=== PATIENT | male | born 1955 | race Caucasian/White ===

== ENCOUNTER 2020-01-12 16:14 | Outpatient (CLI) | payer BC, SELFPAY ==
--- NOTE | ~2020-01-12 | XR_ITS ---
EXAMINATION: XR knee RT min 4V DATE: 01/12/2020 16:36 INDICATION: Right knee pain TECHNIQUE: Four views of the right knee were obtained. COMPARISON: None. FINDINGS: Alignment is normal. No fracture or osteochondral lesion. There is mild tricompartmental os teoarthritis characterized by tiny marginal osteophytes. No joint effusion/synovitis. Soft tissues a re unremarkable. IMPRESSION: 1. No acute osseous abnormality. Reviewed, dictated and finalized at location A.
== END 2020-01-12 16:15 | disposition home or self-care (01) ==
LOC: CHSIMG 16:16
PROVIDERS: PCP Internal Medicine; Visit Provider Internal Medicine
DX: M25.561 Pain in right knee (principal)
CPT/HCPCS: 73564

== ENCOUNTER 2020-12-28 14:04 | Outpatient (CLI) | payer MEDICARE, SELFPAY ==
--- NOTE | ~2020-12-28 | CT_ITS ---
EXAMINATION: CT abdomen pelvis wo con DATE: 12/28/2020 14:29 INDICATION: Left flank pain with microhematuria TECHNIQUE: Computed tomography (CT) of the abdomen and pelvis was performed without intravenous contr ast. The dose-length product was 363.70 mGy-cm. Automated exposure control and iterative reconstructi on technique were employed. COMPARISON: CT dated 07/24/2014. FINDINGS: There is lingular and right middle lobe atelectasis. Heart size is normal. No significant p leural or pericardial effusion. The liver, spleen, adrenal glands and left kidney are unremarkable. There are nonobstructing right re nal stones. No significant hydronephrosis. No ureteral stones. Bladder is unremarkable. Prostate glan d mildly prominent. Nonobstructive bowel gas pattern. There is a retroaortic left renal vein. There i s fatty infiltration of the pancreas. There is surgical anastomosis in the distal colon. No significant vascular abnormality. No lymphadenopathy. No abnormal pelvic masses or fluid collectio ns. Moderate lumbar spondylosis. There is a prosthetic disc device at L4-5. No acute osseous abnormal ity. IMPRESSION: 1. Nonobstructing right nephrolithiasis. Reviewed, dictated and finalized at location B.
== END 2020-12-28 14:05 | disposition home or self-care (01) ==
LOC: CHSIMG 14:08
PROVIDERS: PCP Internal Medicine; Visit Provider Internal Medicine
DX: R10.9 Unspecified abdominal pain (principal)
CPT/HCPCS: 74176

== ENCOUNTER 2021-02-15 08:41 | Outpatient (CLI) | payer MEDICARE, SELFPAY ==
--- NOTE | ~2021-02-15 | US_ITS ---
EXAMINATION: US carotid duplex BI DATE: 02/15/2021 09:17 INDICATION: Vertigo. Carotid stenosis. TECHNIQUE: Grayscale, color Doppler, and pulsed Doppler images of the cervical carotid arteries were obtained. The degree of vessel stenosis is placed in one of the following categories: normal, <50%, 5 0-69%, >=70% but less than near-occlusion, near-occlusion, or total occlusion. Note that percent sten osis relative to normal distal artery lumen diameter is indirectly measured from velocity measurement s as described by Jigar, et al. Radiology 2003; [id number]:[id number]. Notes: Normal: Peak systolic velocity <125 centimeters/sec and no plaque <50%. Peak systolic velocity <125 ( EDV <40; ICA/CCA PSV ratio <2.0; used these factors only a tandem lesions or low cardiac output or co ntralateral disease) 50-69 %: PSV 125-230 (EDV 40-100; ratio 2-4) >= 70% but less than near occlusion: PSV greater than 230 (EDV > 100; ratio> 4.0) Near Occlusion: PSV that is variable; markedly narrowed lumen Occlusion: Absent flow on color/spectral Doppler and no lumen on paredes scale. COMPARISON: None. FINDINGS: RIGHT: The right common carotid artery (CCA) peak systolic velocity (PSV) is 87 cm/s. The right internal car otid artery (ICA) PSV is 120 cm/s. The right ICA end-diastolic velocity (EDV) is 29 cm/s. The right I CA/CCA PSV ratio is 1.4. The external carotid artery (ECA) PSV is 91 cm/s. There is antegrade flow in the right vertebral artery. LEFT: The left CCA PSV is 94 cm/s. The left ICA PSV is 89 cm/s. The left ICA EDV is 26 cm/s. The left ICA/C CA PSV ratio is 0.9. The ECA PSV is 108 cm/s. There is antegrade flow in the left vertebral artery. IMPRESSION: 1. Less than 50% stenosis in the right internal carotid artery by sonographic criteria. 2. Less than 50% stenosis in the left internal carotid artery by sonographic criteria. Reviewed, dictated and finalized at location A. IMPRESSION: 1. Less than 50% stenosis in the right internal carotid artery by sonographic c anthony. 2. Less than 50% stenosis in the left internal carotid artery by sonographic cr thang.
== END 2021-02-15 08:42 | disposition home or self-care (01) ==
LOC: CHSIMG 08:44
PROVIDERS: PCP Internal Medicine; Visit Provider Internal Medicine
DX: I65.29 Occlusion and stenosis of unspecified carotid artery (principal)
CPT/HCPCS: 93880

== ENCOUNTER 2021-05-18 08:15 | Outpatient (CLI) | payer MEDICARE, SELFPAY ==
--- NOTE | ~2021-05-18 | CT_ITS ---
EXAMINATION: CT abdomen pelvis wo/w con DATE: 05/18/2021 09:20 INDICATION: Microhematuria. TECHNIQUE: Computed tomography (CT) of the abdomen and pelvis was performed without and with intraven ous contrast using a total of 130 mL Omnipaque-350 intravenous contrast with a double-bolus technique for simultaneous opacification of the renal parenchyma and renal collecting system. Automated exposu re control and iterative reconstruction technique were employed. The dose-length product was 1785.25 mGy-cm. COMPARISON: CT abdomen and pelvis 12/28/2020 FINDINGS: The visualized portions of the lung bases demonstrate mild atelectasis. No pleural effusion. The hear t size is normal. There are coronary artery calcifications. No pericardial effusion. The liver and sp lucius are normal. There are changes of cholecystectomy. The pancreas and left adrenal gland are normal . 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 There are approx imately 5 stones in right kidney measuring up to 4 mm. There are cysts in the kidneys measuring up to 10 mm on the right. The ureters are well opacified and are normal. The bladder is normal. The prosta te is mildly enlarged. There is an anastomosis in the rectosigmoid. There is diverticulosis of the co diana without evidence of diverticulitis. There are no dilated loops of bowel. The appendix is not visu alized. There is a small right inguinal hernia containing fat. There are no pathologically enlarged l ymph nodes. There is no free intraperitoneal fluid. There is moderate lumbar spondylosis. There are c hanges of anterior fusion procedure at L5-S1. IMPRESSION: 1. Nonobstructing right kidney stones measuring up to 4 mm. Reviewed, dictated and finalized at location A.
--- NOTE | ~2021-05-18 | XR_ITS ---
EXAMINATION: XR abdomen/kub 1V DATE: 05/18/2021 08:35 INDICATION: Microhematuria. TECHNIQUE: A supine view of the abdomen on 2 radiographs was obtained. COMPARISON: CT abdomen and pelvis 05/18/2021 FINDINGS: There are no dilated loops of bowel. There is a phlebolith in left pelvis. There is a 4 mm stone in right kidney lower pole. Surgical clips in the right upper quadrant are likely from cholecys tectomy. There are changes of anterior fusion procedure at L5-S1. IMPRESSION: 1. 4 mm right kidney stone. Reviewed, dictated and finalized at location A. IMPRESSION: 1. 4 mm right kidney stone.
[2021-05-18 09:02] LABS: Estimated Glomerular Filt Rate > 60
== END 2021-05-18 08:16 | disposition home or self-care (01) ==
LOC: ANHIMG 08:21
PROVIDERS: PCP Internal Medicine; Visit Provider Nurse Practitioner Adult Health
DX: R31.29 Other microscopic hematuria (principal); N20.0 Calculus of kidney
CPT/HCPCS: 74018; 74178; Q9967

== ENCOUNTER 2021-06-02 10:24 | Outpatient (CLI) | payer MEDICARE, SELFPAY ==
--- NOTE | ~2021-06-02 | XR_ITS ---
XR foot LT min 3V 06/02/2021 10:48 Indication: Left fourth and fifth metatarsal pain Procedure: 4 views left foot Comparison: No prior studies for comparison. Findings: No fracture, subluxation or dislocation. Lisfranc joint intact. No significant soft tissue abnormality. No foreign bodies. Impression: 1: No significant bone or joint abnormality. Reviewed, dictated and finalized at location A. 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
== END 2021-06-02 10:25 | disposition home or self-care (01) ==
LOC: CHSIMG 10:27
PROVIDERS: PCP Internal Medicine; Visit Provider Internal Medicine
DX: S99.922A Unspecified injury of left foot, initial encounter (principal)
CPT/HCPCS: 73630

== ENCOUNTER → 2021-11-16 10:07 | Outpatient (CLI) | payer MEDICARE, SELFPAY ==
--- NOTE | ~2021-11-16 | MR_ITS ---
EXAMINATION: MR lumbar spine wo con DATE: 11/16/2021 10:39 INDICATION: Lumbar spondylosis with radiculopathy. Low back pain. Bilateral leg pain. TECHNIQUE: Magnetic resonance imaging (MRI) of the lumbar spine was performed without intravenous con trast. Sequences included sagittal T2-weighted FSE, sagittal T2-weighted FS FSE, sagittal T1-weighted FSE, and axial T2-weighted FSE. COMPARISON: None FINDINGS: There is 3 degrees levocurvature of lumbar spine. There is 3 mm anterolisthesis of L4 on L5 . There are changes of anterior fusion procedure at L5-S1 with interbody device. There are Schmorl's nodes at multiple levels. There is mildly decreased disc height at L1-L2 and L2-L3, moderately decrea sed disc height at L3-L4, and mildly decreased disc height at L4-L5. The distal spinal cord signal in tensity is normal. The conus medullaris is at L1. The following disc levels are specifically discusse d: L1-L2: The disc is bulging and has an annular fissure. There is mild bilateral facet joint osteoarthr itis. There is mild bilateral neural foraminal stenosis. There is mild central canal stenosis. L2-L3: The disc is bulging and has an annular fissure. There is mild bilateral facet joint osteoarthr itis. There is mild bilateral neural foraminal stenosis. There is mild central canal stenosis. L3-L4: The disc is bulging and has an annular fissure. There is severe bilateral facet joint osteoart hritis. There is moderate bilateral neural foraminal stenosis. There is mild central canal stenosis. L4-L5: The disc is bulging and has an annular fissure. There is severe bilateral facet joint osteoart hritis. There is mild right and moderate left neural foraminal stenosis. There is mild central canal stenosis. L5-S1: There is moderate bilateral facet joint osteoarthritis. There is mild bilateral neural foramin al stenosis. There is no central canal stenosis. IMPRESSION: 1. Moderate lumbar spondylosis. 2. Anterior fusion procedure at L5-S1. Reviewed, dictated and finalized at location A.
== END ==
PROVIDERS: PCP Internal Medicine
DX: M47.26 Other spondylosis with radiculopathy, lumbar region (principal); Z98.1 Arthrodesis status
CPT/HCPCS: 72148

== ENCOUNTER 2022-06-02 07:57 | Outpatient (RCR) | payer MEDICARE, SELFPAY ==
--- NOTE | 2022-06-02 09:14 | PTOPEVAL1 ---
Assessment and note entered by Bess Mensah DPT Evaluation Information Assessment Status Evaluation Diagnosis LBP Onset 09/20/2021 Subjective Information Pt reports that back pain started in September when he lifted a heavy generator to his truck. Pt reports that as soon as he lifted the weight, he felt immediate pain. He has had a lumbar fusion from L5 -S1 several years ago. He figured his pain would go away but it hasn't. He reports that for awhile, pain got better, but it is not completely resolved. He notices that when he is walking, his foot seem to slap on the ground. 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 He notes that he is more sensitive to the seats in a truck or the smoothness of the road when driving. He reports pain in the low back that feels like burning. Pt reports that sleep is mostly unaffected since he has started taking pregabalin. Denies numbness or tingling. He has a follow up with his MD on 06/29. Pt wants to be able to have less pain and feel more like himself. Reported Pain Level Pain Score 3: Self Report Assessment PT Clinical Summary Pt presents to physical therapy with low back pain and demonstrates decreased strength, decreased muscular mobility, and altered gait/posture. His current deficits make it more challenging for him to lift weights, walk, and maintain sitting positions for extended periods of time as needed for driving his truck or hunting. He was provided with an HEP focused on improve mobility and strength within his tolerance. He will benefit from skilled PT to improve the aforementioned impairments, facilitate symptom relief, and return to functional and recreational activities. Plan of Care Interventions Electrical Stimulation,Gait Training,Hot Pack/Cold Pack,Manual Therapy,Neuro Re-education,Patient/ Caregiver Educati,Therapeutic Activities, Therapeutic Exercise PT Services Indicated Yes These treatments will address the objective and functional deficits as defined above. The patient will be advanced safely and appropriately in order for the patient to progress towards his/her prior level of function. Additional exercises will be introduced and as well as a comprehensive home exercise program upon discharge, if needed, ?to ensure carryover of functional gains achieved in the clinic. This treatment plan has been reviewed and agreement upon by the patient.
== END 2022-06-12 09:41 | disposition home or self-care (01) ==
LOC: CHSPT 07:57
PROVIDERS: PCP Nurse Practitioner Family; Visit Provider Nurse Practitioner Family
DX: M47.26 Other spondylosis with radiculopathy, lumbar region (principal)
CPT/HCPCS: 97014; 97110; 97161; G0283

== ENCOUNTER 2022-08-07 16:52 | Emergency (ER) | payer MEDICARE, SELFPAY ==
--- NOTE | ~2022-08-07 | CT_ITS ---
EXAMINATION: CT brain wo con DATE: 08/07/2022 17:41 INDICATION: headache; fall, small bump on back of head . TECHNIQUE: Computed tomography (CT) of the head was performed without intravenous contrast. The mA wa s adjusted according to patient size. Iterative reconstruction technique was employed. The dose-lengt h product was 605.33 mGy-cm. COMPARISON: None. FINDINGS: No acute intracranial hemorrhage or extra-axial fluid collection. No hydrocephalus, mass, or herniation. No acute ischemic infarct. Unremarkable dural venous sinus attenuation. No acute osseous abnormality. Small posterior scalp contusion. The aerated spaces are clear. Prior bilateral mastoidectomies. Minimal fluid present in some residua l mastoid air cells. IMPRESSION: No acute intracranial process. Reviewed, dictated and finalized at location K. 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
--- NOTE | ~2022-08-07 | CT_ITS ---
EXAMINATION: CT cervical spine wo con DATE: 08/07/2022 17:41 INDICATION: chronic neck pain, s/p C6-7 fusion, neck pain now TECHNIQUE: Computed tomography (CT) of the cervical spine was performed without intravenous contrast. Automated exposure control and iterative reconstruction technique were employed. The dose-length pro duct was 371.34 mGy-cm. COMPARISON: None. FINDINGS: Vertebral Body Alignment: Intact. Reversed lordosis centered at C4-5. Craniocervical and atlantoaxial alignment: Moderate degenerative change. Alignment intact. Osseous structures/fracture: No evidence of a lytic or blastic process in the visualized spine. No e vidence of acute fracture. Uncomplicated appearing anterior fusion at C6-7. Cervical soft tissues: The paraspinal soft tissues planes are maintained. Degenerative changes: Degenerative changes, without severe neural foraminal or central canal narrowin g. Moderate left neural foraminal narrowing at C5-6 and C6-7. IMPRESSION: No acute fracture or traumatic malalignment in the cervical spine Reviewed, dictated and finalized at location K. 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
[2022-08-07 16:54] VITALS: BP 179/98; PULSE 76; RESP 16; TEMP 36.7; O2SAT 99
[2022-08-07 17:07] VITALS: BP 178/98; PULSE 77; RESP 16; TEMP 36.3; O2SAT 100
--- NOTE | 2022-08-07 17:26 | ED.GENADULT ---
HPI - General Adult General Chief complaint: Head Injury Stated complaint: hit head on ground History of Present Illness HPI narrative: the patient is a 67-year-old male who was outside, his left leg got trapped in his bumper of his truck, so he fell backwards, hitting his head on concrete, with a brief loss of consciousness, scalp hematoma, dizziness, and nausea but no vomiting. He also has a headache mostly in the posterior head. Event took place at 3:20 p.m.. He went home. He took half of a tablet of hydrocodone 10 mg 325 that he had at home to relieve the pain. Does have tingling in both feet. No motor or sensory deficits otherwise. No neck pain that is increased compared to baseline. Lights do bother him with photophobia. No vomiting. No blurred vision. Did try to get up suddenly from the couch and had dizziness and vertigo but this has improved. He did drive himself here. Prior history of C6-7 fusion. Related Data Home Medications Medication Instructions Recorded Confirmed glimepiride 4 mg tablet 4 mg PO QAM 06/01/20 08/07/22 metformin 1,000 mg tablet 1,000 mg PO BID 06/01/20 08/07/22 pantoprazole 40 mg tablet,delayed 40 mg PO QAM 06/01/20 08/07/22 release hydrocodone 10 mg-acetaminophen 1 tablet PO Q8H PRN Pain 06/24/20 08/07/22 325 mg tablet tamsulosin 0.4 mg capsule 0.4 mg PO DAILY 06/24/20 08/07/22 losartan 100 mg tablet 100 mg PO DAILY 07/04/21 08/07/22 Allergies Allergy/AdvReac Type Severity Reaction Status Date / Time No Known Allergies Allergy Unknown Verified 07/04/21 10:49 Review of Systems Review of Systems: All systems reviewed & are unremarkable except as noted in HPI and below Constitutional: Constitutional: Reports no additional constitutional complaints, Denies anorexia, Denies body ache(s), Denies chills, Denies excessive sweating, Denies fatigue, Denies fever(s), Denies frequent falls, Reports headache(s), Denies malaise and Denies poor appetite Eyes: Eyes: Reports no additional eye complaints, Denies blurry vision, Denies change in vision, Denies irritation, Denies itchy eyes and Reports photophobia ENT: Reports system reviewed and no additional complaints, except as documented, Reports Normal hearing present, Denies change in voice, Denies dysphagia, Reports vertigo, Reports dizziness, Denies ear discharge, Reports headache(s), Denies hearing loss, Denies hoarseness, Denies nasal congestion, Reports neck pain, Denies sinus pressure, Denies sore throat and Denies throat swelling Cardiovascular: Cardiovascular: Reports no additional cardiovascular complaints, Denies chest pain, Denies syncope, Denies rapid heart rate, Denies irregular heart rhythm, Denies leg edema, Denies dyspnea and Denies slow heart rate Respiratory: Respiratory: Reports no additional respiratory complaints, Denies cough, Denies dyspnea, Denies stridor and Denies wheezing Gastrointestinal: Gastrointestinal: Reports no additional gastrointestinal complaints, Denies abdominal pain, Denies melena, Denies hematochezia, Denies dysphagia, Denies diarrhea, Denies nausea and Denies vomiting Genitourinary: Genitourinary: Denies hematuria, Denies oliguria, Denies dysuria, Denies flank pain, Denies urinary frequency and Denies urinary urgency Musculoskeletal: Musculoskeletal: Reports no additional musculoskeletal complaints, Denies abnormal gait, Denies back pain, Denies myalgias, Denies arthralgias, Denies joint swelling, Denies limited range of motion, Denies muscle cramps, Denies muscle weakness, Reports neck pain and Denies numbness Integumentary/Breasts: Skin/Breast: Reports system reviewed and no additional complaints, except as docu, Denies breast pain, Denies change in pigmentation, Denies pruritus, Denies erythema and Denies wounds Neurologic: Reports system reviewed and no additional complaints, except as documented, Reports Normal hearing present, Denies Abnormal speech present, Denies abnormal gait, Denies confusion, Reports
[2022-08-07] MEDS: ONDANSETRON HCL ODT 4 MG TABLET 8 MG PO (19:00)
[2022-08-07] MEDS: MECLIZINE HCL 25 MG TABLET 50 MG PO (19:00)
[2022-08-07 19:04] VITALS: BP 159/77; PULSE 79; RESP 16; TEMP 37; O2SAT 96
== END 2022-08-07 19:06 | disposition home or self-care (01) ==
PROVIDERS: Emergency Provider Emergency Medicine; PCP Internal Medicine
DX: S06.0X1A Concussion with loss of consciousness of 30 minutes or less, initial encounter (principal); Z79.891 Long term (current) use of opiate analgesic; Z79.84 Long term (current) use of oral hypoglycemic drugs; Z87.891 Personal history of nicotine dependence; W18.39XA Other fall on same level, initial encounter
CPT/HCPCS: 70450; 72125; 99284; A9270; L0150

== ENCOUNTER 2022-10-23 15:56 | Outpatient (CLI) | payer MEDICARE, SELFPAY ==
--- NOTE | ~2022-10-23 | XR_ITS ---
EXAM: XR shoulder RT min 2V DATE: 10/23/2022 16:09 HISTORY: R SHOULDER PAIN,CHRONIC . COMPARISON: None available. FINDINGS: Normal mineralization. No fracture or dislocation. No lytic or blastic lesion. Widened AC joint. Moderate narrowing, subchondral sclerosis, and subchondral cyst formation at the glenohumeral joint. Amorphous calcification in the distal rotator cuff. No erosion or periosteal change. Soft tiss ues within normal limits. IMPRESSION: AC joint widening, may be secondary to remote injury, surgical change, or osteolysis. Mod erate glenohumeral joint osteoarthritis. Rotator cuff calcific tendinitis. Reviewed, dictated and finalized at location K. IMPRESSION: AC joint widening, may be secondary to remote injury, surgical akers ge, or osteolysis. Moderate glenohumeral joint osteoarthritis. Rotator cuff julee cific tendinitis.
== END 2022-10-23 15:57 | disposition home or self-care (01) ==
LOC: CHSIMG 15:57
PROVIDERS: PCP Internal Medicine; Visit Provider Internal Medicine
DX: M25.511 Pain in right shoulder (principal)
CPT/HCPCS: 73030

== ENCOUNTER 2023-04-26 07:00 | Day surgery (SDC) | payer MEDICARE, SELFPAY ==
[2023-04-05 15:13] VITALS: BMI 34.5
[2023-04-11 13:48] VITALS: BMI 32.3
[2023-04-26 08:10] VITALS: BP 140/75; PULSE 100; RESP 20; TEMP 36.5; O2SAT 99
--- NOTE | 2023-04-26 08:17 | WPDANESEPPF ---
Anes - Initial Pre Proc Eval Procedure: Operation Date: 04/26/23 09:30 Proposed Procedures p Diagnostic Colonoscopy - Piotr Carrasco MD Date/Time: 04/26/23 08:17 Surgeon: Piotr Carrasco MD Pre Op Diagnosis: History of Colon Polyps Patient Data Age: 67 Gender: M Height: 1.68 m Weight: 91 kg Allergies Allergy/AdvReac Type Severity Reaction Status Date / Time No Known Allergies Allergy Unknown Verified 04/26/23 08:25 Home Medications Medication Instructions Recorded Confirmed Type metformin 1,000 mg tablet 1,000 mg PO BID 06/01/20 04/26/23 History pantoprazole 40 mg tablet,delayed 40 mg PO QAM 06/01/20 04/26/23 History release hydrocodone 10 mg-acetaminophen 1 tablet PO Q8H PRN Pain 06/24/20 04/26/23 History 325 mg tablet tamsulosin 0.4 mg capsule 0.4 mg PO DAILY 06/24/20 04/26/23 History losartan 100 mg tablet 100 mg PO DAILY 07/04/21 04/26/23 History insulin degludec 100 unit/mL (3 20 unit subcut QHS 03/15/23 04/26/23 History mL) subcutaneous pen (Tresiba FlexTouch U-100 insulin) pregabalin 100 mg capsule (Lyrica) 100 mg PO BID 03/15/23 04/26/23 History duloxetine 60 mg capsule,delayed 60 mg PO HS 04/11/23 04/26/23 History release finasteride 5 mg tablet 5 mg PO HS 04/11/23 04/26/23 History polyethylene glycol 3350 17 17 g PO DAILY 04/11/23 04/26/23 History gram/dose oral powder (Miralax) Patient hx anesthesia problems: none Family hx anesthesia problems: none Results Review: All pre-operative results and documents have been reviewed as part of the pre-operative evaluation. [facility] Family History Family History Sibling Family history of diabetes mellitus in first degree relative Family history of hearing loss Diabetes mellitus Family history of lymphoma Family history of lung disease Malignant neoplasm of prostate Mother Family history of cardiovascular disease Father Family history of pancreatic cancer Social History Social History Social History: Caffeine-daily Years smoked: 25 Smoking status: Former smoker Tobacco type: pipe Second hand tobacco smoke exposure: No Smoking end date: 07/23/09 Alcohol intake: never Drinks per week: 1 Alcohol use details: RARW Substance use: never Substance use type: does not use Lack of Transportation: No Lack of Food: Never True Current Housing: I Have Housing Concerned About Future Housing: No Difficulty Paying Gas/Electric Bills: No Difficulty Paying for Meds: No Currently Unemployed: No Education: High School Diploma/GED Difficulty w/ Childcare or Family Care: No Living arrangements: alone Spiritual care concerns: No Anes - Eval Final PreProcedure Day of Procedure 04/26/23 08:17 Patient weight: obese Heart: regular rate and rhythm Lungs: decreased breath sounds Airway: Mallampati scale class II Neurological: alert and oriented Last oral intake: >/= 8 hours ASA classification: III Emergent: no Anesthetic plan: proceed Anesthesia type and monitoring: general GIVS and standard monitoring Results Review: All pre-operative results and documents have been reviewed as part of the pre-operative evaluation. Informed Consent: The patient's anesthetic plan and its attendant risks and benefits were discussed with the patient/family/POA. Questions were solicited and answers provided to the satisfaction of the patient/family/POA.
[2023-04-26] MEDS: LACTATED RINGERS 1,000 ML 150 ML IV CONT (08:37)
[2023-04-26 08:38] LABS: Glucose Point of Care 205 mg/dl (65-105)
--- NOTE | 2023-04-26 09:13 | PM.HPGS ---
History of Present Illness History of Present Illness Consent: Risks, benefits, and alternatives have been discussed and questions answered. Patient agrees to proceed with procedure. Chief complaint: History of Colon Polyps Narrative: Edison Osborne is a 67 year old male with history of colon polyp Review of Systems Constitutional: Constitutional: Denies headache(s) and Denies weakness Eyes: Eyes: Denies blurry vision ENT: Denies Normal hearing present, Denies headache(s) and Denies neck pain Cardiovascular: Cardiovascular: Denies chest pain and Denies dyspnea Respiratory: Respiratory: Denies dyspnea Gastrointestinal: Gastrointestinal: Reports no additional gastrointestinal complaints Genitourinary: Genitourinary: Denies dysuria Musculoskeletal: Musculoskeletal: Denies neck pain Integumentary/Breasts: Skin/Breast: Denies dry skin Neurologic: Reports Normal hearing present, Denies headache(s) and Denies weakness Psychiatric: Psychiatric: Denies anxiety Endocrine: Endocrine: Denies change in body appearance Hematologic/Lymphatic: Hematologic/Lymphatic: Denies easy bleeding Allergic/Immunologic: Allergic/Immunologic: Denies urticaria PMFSH Past Medical History Medical History (Updated 04/26/23 @ 09:14 by Piotr Carrasco MD) Colon polyp Family History Family History Sibling Family history of diabetes mellitus in first degree relative Family history of hearing loss Diabetes mellitus Family history of lymphoma Family history of lung disease Malignant neoplasm of prostate Mother Family history of cardiovascular disease Father Family history of pancreatic cancer Social History Social History Social History: Caffeine-daily Years smoked: 25 Smoking status: Former smoker Tobacco type: pipe Second hand tobacco smoke exposure: No Smoking end date: 07/23/09 Alcohol intake: never Drinks per week: 1 Alcohol use details: RARW Substance use: never Substance use type: does not use Lack of Transportation: No Lack of Food: Never True Current Housing: I Have Housing Concerned About Future Housing: No Difficulty Paying Gas/Electric Bills: No Difficulty Paying for Meds: No Currently Unemployed: No Education: High School Diploma/GED Difficulty w/ Childcare or Family Care: No Living arrangements: alone Spiritual care concerns: No Meds Home Medications and Allergies Home Medications Medication Instructions Recorded Confirmed Type metformin 1,000 mg tablet 1,000 mg PO BID 11/10/20 10/05/23 History pantoprazole 40 mg tablet,delayed 40 mg PO QAM 06/01/20 04/26/23 History release hydrocodone 10 mg-acetaminophen 1 tablet PO Q8H PRN Pain 06/24/20 04/26/23 History 325 mg tablet tamsulosin 0.4 mg capsule 0.4 mg PO DAILY 06/24/20 04/26/23 History losartan 100 mg tablet 100 mg PO DAILY 07/04/21 04/26/23 History insulin degludec 100 unit/mL (3 20 unit subcut QHS 03/15/23 04/26/23 History mL) subcutaneous pen (Tresiba FlexTouch U-100 insulin) pregabalin 100 mg capsule (Lyrica) 100 mg PO BID 03/15/23 04/26/23 History duloxetine 60 mg capsule,delayed 60 mg PO HS 04/11/23 04/26/23 History release finasteride 5 mg tablet 5 mg PO HS 04/11/23 04/26/23 History polyethylene glycol 3350 17 17 g PO DAILY 04/11/23 04/26/23 History gram/dose oral powder (Miralax) Allergies Allergy/AdvReac Type Severity Reaction Status Date / Time No Known Allergies Allergy Unknown Verified 04/26/23 08:25 Vital Signs Vital Signs - 24 hr 04/26/23 08:10 Temperature 97.7 F Pulse Rate 100 Respiratory Rate 20 Blood Pressure 140/75 Pulse Oximetry 99 Oxygen Delivery Room Air Exam Const: General: comfortable and no acute distress HENMT: Face/Nose/Sinus: Normal nares present Other: hearing aids Eyes: General: appeara
[2023-04-26 09:50] VITALS: BP 106/94; PULSE 80; RESP 16; O2SAT 95
--- NOTE | 2023-04-26 09:57 | WPDANESPN ---
Anes - Prog Note Post-Op Date/Time: 04/26/23 09:57 Cardiovascular status: normal Respiratory status: normal Airway patency: baseline Mental status: baseline Post-Op hydration status: normal Vital Signs: Last Vital Signs Temp 36.5 C 04/26/23 08:10 Pulse 80 04/26/23 09:50 Resp 16 04/26/23 09:50 BP 106/94 H 04/26/23 09:50 Pulse Ox 95 04/26/23 09:50 O2 Del Method Room Air 04/26/23 09:50 Pain Score (VAS): 0 I/O: Intake & Output 04/25/23 04/26/23 04/26/23 23:59 07:59 15:59 Intake Total 700 Balance 700 04/26/23 08:35 POC Capillary Glucose 205 H Patient Feedback: Patient satisfied with anesthetic care.
[2023-04-26 10:00] VITALS: BP 100/67; PULSE 71; RESP 18; O2SAT 96
[2023-04-26 10:10] VITALS: BP 140/71; PULSE 70; RESP 16; O2SAT 96
== END 2023-04-26 10:22 | disposition home or self-care (01) ==
PROVIDERS: PCP Internal Medicine; Visit Provider Internal Medicine Gastroenterology
PROC: 0DJD8ZZ Inspection of Lower Intestinal Tract, Via Natural or Artificial Opening Endoscopic (ICD-10-PCS; CPT 45378; principal; 2023-04-26 09:30)
DX: Z86.010 Personal history of colon polyps (principal); D12.2 Benign neoplasm of ascending colon; D12.3 Benign neoplasm of transverse colon; D12.4 Benign neoplasm of descending colon; K64.8 Other hemorrhoids
CPT/HCPCS: 45385

== ENCOUNTER 2023-04-26 09:00 | Outpatient (NON) | payer MEDICARE, SELFPAY | END 2023-04-26 09:01 | disposition home or self-care (01) | PROVIDERS: PCP Internal Medicine; Visit Provider Internal Medicine Gastroenterology | DX: Z86.010 Personal history of colon polyps (principal) | CPT/HCPCS: 88305 ==

== ENCOUNTER 2023-08-02 10:14 | Outpatient (CLI) | payer MEDICARE, SELFPAY ==
--- NOTE | ~2023-08-02 | XR_ITS ---
EXAMINATION: XR lumbar spine 2-3V DATE: 08/02/2023 10:34 INDICATION: Lumbar radiculopathy. TECHNIQUE: 3 views of lumbar spine were obtained. COMPARISON: Lumbar spine MRI 11/16/2021 FINDINGS: There is 5 degrees levocurvature of lumbar spine. There is 3 mm anterolisthesis of L4 on L5 . Vertebral body heights are normal. There are changes of anterior fusion procedure at L5-S1 with int erbody devices. There is mildly decreased disc height at L1-L2 and L2-L3, moderately decreased disc h eight at L3-L4, and mildly decreased disc height at L4-L5. There is multilevel severe facet joint ost eoarthritis. Surgical clips in the right upper quadrant are likely from cholecystectomy. IMPRESSION: 1. Moderate lumbar spondylosis. 2. Anterior fusion procedure at L5-S1. Reviewed, dictated and finalized at location A. IAC CATH TECHNOLOGIST
== END 2023-08-02 10:15 | disposition home or self-care (01) ==
LOC: CHSIMG 10:16
PROVIDERS: PCP Internal Medicine; Visit Provider Nurse Practitioner Family
DX: M54.16 Radiculopathy, lumbar region (principal); Z98.1 Arthrodesis status; M43.06 Spondylolysis, lumbar region
CPT/HCPCS: 72100

== ENCOUNTER 2023-08-17 10:52 | Outpatient (CLI) | payer MEDICARE, SELFPAY ==
--- NOTE | 2023-08-17 10:59 | ECG_ITS ---
Measurements Intervals [place] Rate: 74 P: 50 IA: 197 QRS: 58 QRSD: 100 T: 50 QT: 357 QTc: 397 Interpretive Statements SINUS RHYTHM DELAYED PRECORDIAL R/S TRANSITION BORDERLINE ECG NO PREVIOUS ECG AVAILABLE FOR COMPARISON Electronically Signed On 08-17-2023 11:59:55 CAR WASH ATTENDANT by Vasquez Perez D.O.
[2023-08-17 11:34] LABS: Basophils Absolute Auto 0.1 K/mm3 (0.0-0.1); Basophils Percent Auto 0.9 % (0.2-1.2); Eosinophils Absolute Auto 0.3 K/mm3 (0-0.3); Hematocrit 40.7 % (42.0-52.0); Hemoglobin 13.4 g/dL (14.0-18.0); Immature Granulocyte Absolute 0.04 K/mm3 (0.00-0.031); Immature Granulocyte Percent A 0.5 % (0-0.5); Lymphocytes Absolute Auto 1.59 K/mm3 (0.9-3.2); Lymphocytes Percent Auto 17.9 % (18.3-44.2); Mean Corpuscular HGB Conc 32.9 g/dl (32-36); Mean Corpuscular Hemoglobin 30.9 pg (26-34); Mean Corpuscular Volume 93.8 fl (80-100); Mean Platelet Volume 10.5 fl (7.4-10.4); Monocytes Absolute Auto 0.8 K/mm3 (0.1-0.6); Monocytes Percent Auto 9.2 % (2.6-8.5); Neutrophils Absolute Auto 6.1 K/mm3 (1.3-6.7); Neutrophils Percent Auto 68.5 % (45.5-73.1); Platelet Count Result 176 k/mm3 (150-375); Red Blood Count 4.34 M/mm3 (4.6-6.20); Red Cell Distribution Width 13.3 % (11.5-14.5); White Blood Count 8.9 K/mm3 (4.5-10.0)
[2023-08-17 11:45] LABS: Anion Gap 10 mmol/L (8-16); Blood Urea Nitrogen 26 mg/dL (9-20); Calcium 9.3 mg/dL (8.4-10.2); Carbon Dioxide 29 mmol/L (22-30); Chloride 96 mmol/L (98-107); Estimated Glomerular Filt Rate > 60; Glucose 341 mg/dL (65-110); Potassium 4.1 mmol/L (3.4-5.0); Sodium 135 mmol/L (137-145)
[2023-08-17 11:46] LABS: Prothrombin Time 13.6 Seconds (11.1-14.7)
[2023-08-17 11:47] LABS: Partial Thromboplastin Time 24.3 SECONDS (22.3-36.8)
== END 2023-08-17 10:53 | disposition home or self-care (01) ==
PROVIDERS: PCP Internal Medicine; Visit Provider Urology
DX: N32.9 Bladder disorder, unspecified (principal); I10 Essential (primary) hypertension; Z01.818 Encounter for other preprocedural examination
CPT/HCPCS: 36415; 80048; 85025; 85610; 85730; 87086; 93005

== ENCOUNTER 2023-08-21 01:15 | Day surgery (SDC) | payer MEDICARE, SELFPAY ==
--- NOTE | 2023-08-17 10:03 | PC.NURSE ---
Report to the Outpatient Waiting Room, entrance under the green pavilion located off [facility], at time __1045 on date _08/21/23 . Planned Procedure Time: _1245 . Time changes happen often and if your time is changed the preop area will call you the afternoon before. - You and your visitor will be asked to self-screen and do not enter if you have any COVID symptoms. - A mask is optional within the hospital at this time. Patients may have clear liquids (water, carbonated beverages, clear teas, apple juice) until 3 hours prior to surgery (9:45 AM)with a maximum of 20 ounces. - No food from midnight until time of surgery - Infants may have breast milk until 4 hours before surgery, infant formula 6 hours prior to surgery. - Children will be allowed to drink immediately following surgery. If applicable, please bring a bottle or sippy cup to assist with drinking. Juice, water, soda, and popsicles are readily available. For infants on formula, please bring formula the day of surgery. Pacifiers are allowed. Take the following medications with a SIP of water the morning of surgery: _VERAPAMIL DO NOT STOP ANY OF YOUR OTHER PRESCRIPTION MEDICATIONS PRIOR TO SURGERY ?EXCEPT THE FOLLOWING Medications to discontinue per physician ____HOLD ALL VITAMINS AND SUPPLEMENTS 3 DAYS PRE OP .LAST DOSE 08/17/23 Please no make-up, nail tunisian, hairspray, perfume, deodorant, or body powder the day of surgery. No jewelry (including any body piercings) or valuables the day of surgery, leave them at home. Please take a shower or bath the night before, or the morning of, surgery with an antibacterial soap. Wear comfortable, loose fitting clothing. Children are encouraged to wear pajamas. - Jewelry must be removed prior to entering the operating room. Rings and piercings that are not removed may be cut off. - The hospital will not accept responsibility for valuables. - Please leave all valuables, including medications, at home the day of surgery. If you are going home after surgery, a licensed carry all driver must drive you home. - NO public transportation without another adult if you receive anesthesia. - We recommend that an adult stay with you for 24 hours following discharge. - We also recommend that you do not drive, make important decision, drink alcoholic beverages, or take any drugs that were not prescribed by your health care provider for at least 24 hours after your discharge time. Follow any additional instructions given to you from your surgeon. If you or anyone in your household have experienced Covid symptoms in the past week, please notify your surgeon or the nurse liaison at the phone number below for possible testing. Telephone instructions given to ___PATIENT and asked if any additional questions and then verbalized understanding. Patient advised to call surgeon office or pre surgery nurse liaison [phone] if any additional questions.
[2023-08-17 10:13] VITALS: BMI 32.3
[2023-08-21] VITALS (7 sets, daily range): BP systolic 82–132; BP diastolic 54–78; PULSE 68–79; RESP 7–20; TEMP 36.2–36.4; O2SAT 96–100
[2023-08-21] MEDS: LACTATED RINGERS 1,000 ML 30 ML IV CONT (11:15)
[2023-08-21 11:30] LABS: Glucose Point of Care 167 mg/dl (65-105)
--- NOTE | 2023-08-21 11:56 | WPDANESEPPF ---
Anes - Initial Pre Proc Eval Procedure: Operation Date: 08/21/23 12:45 Proposed Procedures p Cystoscopy Bladder Biopsy with Fulguration - Brennan Huang MD s Possible Trans Urethral Resection Bladder Tumor - Brennan Huang MD Date/Time: 08/21/23 11:56 Surgeon: Brennan Huang MD Pre Op Diagnosis: Lesion of Bladder Patient Data Age: 68 Gender: M Height: 1.68 m Weight: 88.5 kg Last Vital Signs Temp 36.4 C L 08/21/23 11:13 Pulse 79 08/21/23 11:13 Resp 16 08/21/23 11:13 BP 127/67 08/21/23 11:13 Pulse Ox 100 08/21/23 11:13 O2 Del Method Room Air 08/21/23 11:13 Allergies Allergy/AdvReac Type Severity Reaction Status Date / Time No Known Allergies Allergy Unknown Verified 08/21/23 10:53 Home Medications Medication Instructions Recorded Confirmed Type metformin 1,000 mg tablet 1,000 mg PO BID 06/01/20 08/17/23 History pantoprazole 40 mg tablet,delayed 40 mg PO QAM 06/01/20 08/17/23 History release hydrocodone 10 mg-acetaminophen 1 tablet PO Q8H PRN Pain 06/24/20 08/17/23 History 325 mg tablet tamsulosin 0.4 mg capsule 0.4 mg PO DAILY 06/24/20 08/17/23 History losartan 100 mg tablet 100 mg PO DAILY 07/04/21 08/17/23 History insulin degludec 100 unit/mL (3 30 unit subcut QHS 03/15/23 08/17/23 History mL) subcutaneous pen (Tresiba FlexTouch U-100 insulin) pregabalin 100 mg capsule (Lyrica) 100 mg PO BID 03/15/23 08/17/23 History duloxetine 60 mg capsule,delayed 60 mg PO PRN PRN LEG CRAMPS 04/11/23 08/17/23 History release finasteride 5 mg tablet 5 mg PO HS 04/11/23 08/17/23 History cholecalciferol (vitamin D3) 50 50 mcg PO DAILY 08/17/23 08/17/23 History mcg (2,000 unit) tablet mirabegron 25 mg tablet,extended 25 mg PO DAILY 08/17/23 08/17/23 History release 24 hr (Myrbetriq) multivit,Ca,min-iron 8 mg-folic 1 tablet PO DAILY 08/17/23 08/17/23 History acid 200 mcg-lycopene 600 mcg tablet (Centrum Men) omega-3 fatty acids 3,000 mg PO BID 08/17/23 08/17/23 History rosuvastatin 5 mg tablet 5 mg PO DAILY 08/17/23 08/17/23 History torsemide 10 mg tablet 10 mg PO DAILY 08/17/23 08/17/23 History verapamil 120 mg 24 hr 120 mg PO DAILY 08/17/23 08/17/23 History capsule,extended release vitamin A 3,000 mcg (10,000 unit) 3,000 mcg PO DAILY 08/17/23 08/17/23 History capsule Laboratory Tests 08/21/23 11:27 POC Capillary Glucose 167 H mg/dl (65-105) Patient hx anesthesia problems: none Family hx anesthesia problems: none Results Review: All pre-operative results and documents have been reviewed as part of the pre-operative evaluation. [facility] Past Medical History Medical History Colon polyp Family History Family History Sibling Family history of diabetes mellitus in first degree relative Family history of hearing loss Diabetes mellitus Family history of lymphoma Family history of lung disease Malignant neoplasm of prostate Mother Family history of cardiovascular disease Father Family history of pancreatic cancer Social History Social History Social History: Caffeine-daily Years smoked: 25 Smoking status: Former smoker Tobacco type: cigars Second hand tobacco smoke exposure: No Smoking end date: 07/23/09 Additional smoking assessment comments: SMOKED 6 CIGARS DAILY X 25 YRS Alcohol intake: never Drinks per week: 1 Alcohol use details: RARW Substance use: never Substance use type: does not use Lack of Transportation: No Lack of Food: Never True Current Housing: I Have Housing Concerned About Future Housing: No Difficulty Paying Gas/Electric Bills: No Difficulty Paying for Meds: No Currently Unemployed: No Education: High School Diploma/GED Difficulty w/ Childcare or Family Care: No Living
--- NOTE | 2023-08-21 12:45 | WPDHPUPDATE1 ---
History and Physical Update Update Date/Time: 08/21/23 12:45 History and Physical has been reviewed, including an updated exam of the patient. There are NO changes in the patient's condition. Risks, benefits, and alternatives have been discussed and questions answered. Patient agrees to proceed with procedure. Proceed with cysto, bladder biopsy, possible TURBT
[2023-08-21] MEDS: ceFAZolin 2 GM/D5W 50 ML 2 GM/50 ML BAG IVPB (12:52)
[2023-08-21] MEDS: LIDOCAINE HCL 2% GEL UROJET 10 ML PKG MUCOUS MEM (13:06)
--- NOTE | 2023-08-21 13:15 | W.PM.PROC2 ---
Procedure Note - Detailed Date of Procedure 08/21/23 Pre-op Diagnosis Lesion of Bladder Post-op Diagnosis Same Procedure Performed Cystoscopy with bladder biopsy and fulguration right lateral wall Surgeon Bernnan Huang MD Anesthesia General Description of Procedure Patient was taken to the operative suite correctly identified. Once anesthesia was obtained he was placed in dorsal lithotomy position and prepped and draped usual sterile fashion. Twenty-two Indonesian scope was inserted the bladder. There was no bladder tumors noted however he does have areas of erythema and increased vascularity along the right lateral wall. Using cold cup biopsy a biopsy 3 different areas. Fulgurated the base using a Bugbee electrode. There was good hemostasis at termination procedure. 2% viscous lidocaine was inserted into the urethra. Patient is taken stable condition. He is to call for results in 1 week. This completes dictation please send a copy of this op note to my office Estimated Blood Loss 0 Drains No Packing No Pathology Yes Complications No immediate complications Condition Stable Disposition PACU
[2023-08-21 13:41] LABS: Glucose Point of Care 136 mg/dl (65-105)
== END 2023-08-21 14:47 | disposition home or self-care (01) ==
PROVIDERS: PCP Internal Medicine; Visit Provider Urology
PROC: 0TBB8ZX Excision of Bladder, Via Natural or Artificial Opening Endoscopic, Diagnostic (ICD-10-PCS; CPT 52204; principal; 2023-08-21 12:45)
DX: N30.90 Cystitis, unspecified without hematuria (principal); N40.1 Benign prostatic hyperplasia with lower urinary tract symptoms; R35.0 Frequency of micturition; R35.1 Nocturia; Z80.42 Family history of malignant neoplasm of prostate; I10 Essential (primary) hypertension; E11.9 Type 2 diabetes mellitus without complications; E78.00 Pure hypercholesterolemia, unspecified
CPT/HCPCS: 52204; 36415; 80048; 82948; 85025; 85610; 85730; 87086; 88305; 93005; J0690; J1100; J2405; J2704; J3010; J7120

== ENCOUNTER 2024-02-21 15:16 | Emergency (ER) | payer MEDICARE, SELFPAY ==
[2024-02-21 15:20] VITALS: BP 154/73; PULSE 100; RESP 20; TEMP 38.7; O2SAT 97
[2024-02-21 15:50] LABS: Basophils Absolute Auto 0.04 K/mm3 (0.00-0.10); Basophils Percent Auto 0.3 % (0.0-1.0); Eosinophils Absolute Auto 0.06 K/mm3 (0.02-0.50); Eosinophils Percent Auto 0.4 % (1.0-6.0); Hematocrit 35.9 % (37.0-46.0); Hemoglobin 12.5 g/dL (12.4-15.3); Immature Granulocyte Absolute 0.06 K/mm3 (0.00-0.00); Immature Granulocyte Percent A 0.4 % (0.0-0.0); Lymphocytes Absolute Auto 0.57 K/mm3 (1.10-4.50); Lymphocytes Percent Auto 3.6 % (18.0-42.0); Mean Corpuscular HGB Conc 34.8 g/dL (32-36); Mean Corpuscular Hemoglobin 31.9 pg (27.0-31.0); Mean Corpuscular Volume 91.6 fL (78.0-102.0); Mean Platelet Volume 9.3 fl (8.7-11.0); Monocytes Absolute Auto 1.19 K/mm3 (0.10-0.90); Monocytes Percent Auto 7.6 % (2.0-11.0); Neutrophils Percent Auto 87.7 % (50.0-70.0); Platelet Count Result 141 K/mm3 (150-420); Red Blood Count 3.92 M/mm3 (4.70-6.10); Red Cell Distribution Width 12.9 % (11.6-14.4); White Blood Count 15.7 K/mm3 (4.8-10.8)
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
[2024-02-21 16:06] LABS: Anion Gap 13 mmol/L (4-12); Blood Urea Nitrogen 21 mg/dL (7-18); Calcium 8.9 mg/dL (8.5-10.1); Carbon Dioxide 23 mmol/L (21-32); Chloride 98 mmol/L (98-108); Estimated CRCL calculation 63 ml/min; Estimated Glomerular Filt Rate > 60; Glucose 221 mg/dL (70-99); Osmolality Calculated 288 mOsm/kg (285-295); Potassium 4.1 mmol/L (3.5-5.1); Sodium 134 mmol/L (136-145)
[2024-02-21] MEDS: VANCOMYCIN 1,500 MG/NS 500 ML BAG 250 MG IVPB (16:34)
[2024-02-21 16:39] VITALS: BP 164/80; PULSE 93; RESP 20; TEMP 39.1; O2SAT 98
[2024-02-21] MEDS: ACETAMINOPHEN 500 MG TABLET 1000 MG PO (16:41)
[2024-02-21 17:15] VITALS: TEMP 37.1
[2024-02-21 17:33] VITALS: BP 128/66; PULSE 87; RESP 20; TEMP 37.1; O2SAT 97
[2024-02-21 18:45] VITALS: BP 132/73; PULSE 82; RESP 20; TEMP 37.1; O2SAT 97
--- NOTE | 2024-02-25 12:46 | PC.NURSE ---
FINAL WOUND CULTURE AEROBIC RESULTS: NO GROWTH
--- NOTE | 2024-02-25 15:18 | PC.NURSE ---
PRELIMINARY ANAEROBIC BLOOD CULTURE X1 RESULTS: STAPHYLOCOCCUS EPIDERMIDIS. PER DR DAVIS, NO CHANGE IN TREATMENT NEEDED AT THIS TIME. TO AWAIT FINAL WITH C&S.
--- NOTE | 2024-02-26 18:29 | PC.NURSE ---
PRELIMINARY ANAEROBIC BLOOD CULTURE RESULTS: ISOLATE 1: STAPHYLOCOCCUS EPIDERMIDIS. PER C&S AND DR PRATHER, PT SWITCHED TO DOXYCYCLINE 100MG PO BID X 10 #20, NO REFILLS. CALLED INTO [facility] [place] AT PT REQUEST. SPOKE WITH PT, HE IS AWARE OF CHANGE IN TREATMENT, REPORTS HE FEELS BETTER TODAY THAN HE HAS BEEN. HAD REPEAT BLOOD CULTURES DRAWN TODAY AT [facility] PER DR. REYNOSO'S OFFICE. PT IS UPSET, REPORTING NO ONE IS TELLING HIM WHAT IS GOING ON. RN EXPLAINS PT DIAGNOSIS, TREATMENT, THE NEED FOR THE CHANGE IN TREATMENT. PT AGREES TO RN GYNECOLOGY MEDICATION TOMORROW FROM PHARMACY AND START TAKING IT. TO RETURN CALL TO PMD OR RETURN TO ER IF SYMPTOMS WORSEN.
--- NOTE | 2024-02-28 16:54 | PC.NURSE ---
final blood culture reviewed, abt changed. pt doing better per Candie, at dr levine office.
== END 2024-02-21 18:45 | disposition home or self-care (01) ==
PROVIDERS: Emergency Provider Emergency Medicine; PCP Internal Medicine
DX: L03.012 Cellulitis of left finger (principal); Z87.891 Personal history of nicotine dependence
CPT/HCPCS: 36415; 80048; 85025; 87040; 87070; 87147; 87181; 87205; 96365; 96366; 99284; J3370

== ENCOUNTER 2024-02-29 09:20 | Outpatient (CLI) | payer MEDICARE, SELFPAY ==
--- NOTE | ~2024-02-29 | XR_ITS ---
Left wrist Technique: PA, oblique, lateral, and ulnar deviation views were obtained. Clinical History: Pain, cellulitis Findings: No acute fracture or dislocation is seen. Osseous alignment is anatomic. Joint spaces are p reserved. Soft tissues are unremarkable. Impression: No acute abnormality. Reviewed, dictated and finalized at location . Impression: No acute abnormality.
[2024-02-29 09:37] LABS: Hematocrit 39.1 % (37.0-46.0); Hemoglobin 13.4 g/dL (12.4-15.3); Mean Corpuscular HGB Conc 34.3 g/dL (32-36); Mean Corpuscular Hemoglobin 31.3 pg (27.0-31.0); Mean Corpuscular Volume 91.4 fL (78.0-102.0); Platelet Count Result 308 K/mm3 (150-420); Red Blood Count 4.28 M/mm3 (4.70-6.10); Red Cell Distribution Width 12.5 % (11.6-14.4); White Blood Count 10.5 K/mm3 (4.8-10.8)
[2024-02-29 10:11] LABS: Anion Gap 9 mmol/L (4-12); Blood Urea Nitrogen 27 mg/dL (7-18); Calcium 9.5 mg/dL (8.5-10.1); Carbon Dioxide 29 mmol/L (21-32); Chloride 100 mmol/L (98-108); Estimated Glomerular Filt Rate > 60; Glucose 236 mg/dL (70-99); Osmolality Calculated 299 mOsm/kg (285-295); Potassium 5.2 mmol/L (3.5-5.1); Sodium 138 mmol/L (136-145)
== END 2024-02-29 09:21 | disposition home or self-care (01) ==
PROVIDERS: PCP Internal Medicine; Visit Provider Nurse Practitioner Family
DX: M25.532 Pain in left wrist (principal); L03.114 Cellulitis of left upper limb
CPT/HCPCS: 36415; 73110; 80048; 85027

== ENCOUNTER 2024-03-20 09:36 | Outpatient (CLI) | payer MEDICARE, SELFPAY ==
--- NOTE | ~2024-03-20 | US_ITS ---
EXAMINATION: US venous doppler UE DATE: 03/20/2024 10:26 INDICATION: Staph infection at the left hand with left upper limb swelling TECHNIQUE: Grayscale images without and with compression and Doppler images of the left upper extremi ty veins were obtained. COMPARISON: None. FINDINGS: The left internal jugular vein, subclavian vein, axillary vein, brachial vein, basilic vein, cephalic vein, radial vein, and ulnar vein are patent. IMPRESSION: 1. Patent left upper extremity veins. No evidence of venous thrombosis. Reviewed, dictated and finalized at location A.
== END 2024-03-20 09:37 | disposition home or self-care (01) ==
LOC: CHSIMG 09:39
PROVIDERS: PCP Internal Medicine; Visit Provider Internal Medicine
DX: M79.89 Other specified soft tissue disorders (principal)
CPT/HCPCS: 93971

== ENCOUNTER 2024-07-08 10:04 | Outpatient (CLI) | payer MEDICARE, SELFPAY ==
--- NOTE | ~2024-07-08 | CT_ITS ---
Non-contrast CT scan of the Abdomen and Pelvis Clinical indication: Left flank pain Technique: 2.5 mm axial scans were obtained through the abdomen and pelvis without intravenous or or al contrast. Dose reduction technique was used on this scan by utilizing automated exposure control a nd iterative reconstruction technique. The dose-length product (DLP) was 362.51 mGy-cm. COMPARISON: 05/18/2021 Findings: Images through the lung bases reveal no abnormalities. Punctate bilateral nonobstructing renal stones are present. No ureteral stone or hydronephrosis on ei ther side. The liver, spleen, pancreas, and adrenals appear normal. Cholecystectomy clips are present. There are atherosclerotic calcifications of the aorta. . There is no evidence of bowel obstruction. Rectosigmoid anastomosis noted. Images through the pelvis were performed. There is no evidence of ascites or lymphadenopathy. Urinary bladder unremarkable. No pelvic mass seen. Impression: Punctate bilateral nonobstructing renal stones. Reviewed, dictated and finalized at [facility]. SIFICATION COUNSELOR Impression: Punctate bilateral nonobstructing renal stones.
== END 2024-07-08 10:05 | disposition home or self-care (01) ==
PROVIDERS: PCP Internal Medicine; Visit Provider Internal Medicine
DX: N20.0 Calculus of kidney (principal)
CPT/HCPCS: 74176

== ENCOUNTER 2024-08-03 18:11 | Emergency (ER) | payer MEDICARE, SELFPAY ==
--- NOTE | ~2024-08-03 | XR_ITS ---
HISTORY: Fall, Rt. hip pain radiates down Rt. femur COMPARISON: None TECHNIQUE: 2 views of the right femur were performed FINDINGS: No acute or subacute fracture. Joint spaces are preserved and alignment is unremarkable. Soft tissues are unremarkable without foreign body or significant calcification. Normal mineralization. IMPRESSION: No acute fracture or dislocation. Reviewed, dictated and finalized at location A. ST SUPERVISOR
--- NOTE | ~2024-08-03 | XR_ITS ---
HISTORY: Fall, Rt. hip pain radiates down Rt. femur COMPARISON: None TECHNIQUE: 2 views of the right hip along with an AP view of the pelvis FINDINGS: No acute fracture or dislocation is identified. Superior lateral sclerosis of the femoral acetabular joint space is present bilaterally consistent wi th osteoarthritis. Degenerative disease and hardware within the lower lumbar spine. Fecal stasis within the colon. Normal mineralization. IMPRESSION: Degenerative disease without acute fracture or dislocation Reviewed, dictated and finalized at location A. LAY CARD WRITER
[2024-08-03 18:15] VITALS: BP 179/80; PULSE 80; RESP 18; TEMP 36.8; O2SAT 98
--- NOTE | 2024-08-03 18:24 | ED_ITS ---
HPI - General Adult General Chief complaint: Extremity Injury, Lower Stated complaint: Fall Time Seen by Provider: 08/03/24 18:24 Source: patient Mode of arrival: ambulatory Limitations: no limitations History of Present Illness HPI narrative: 69-year-old white male was walking his dog fell on the ice complains of right hip and anterior thigh pain. Related Data Home Medications ?Medication ?Instructions ?Recorded ?Confirmed ?Last Taken ?Type metformin 1,000 mg tablet 1,000 mg PO BID 06/01/20 07/30/24 04/11/23 History pantoprazole 40 mg tablet,delayed 40 mg PO QAM 06/01/20 07/30/24 04/11/23 History release hydrocodone 10 mg-acetaminophen 1 tablet PO Q8H PRN Pain 06/24/20 07/30/24 04/11/23 History 325 mg tablet tamsulosin 0.4 mg capsule 0.4 mg PO DAILY 06/24/20 07/30/24 04/10/23 History losartan 100 mg tablet 100 mg PO DAILY 07/04/21 07/30/24 04/11/23 History insulin degludec 100 unit/mL (3 30 unit subcut QHS 03/15/23 07/30/24 04/10/23 History mL) subcutaneous pen (Tresiba FlexTouch U-100 insulin) pregabalin 100 mg capsule (Lyrica) 100 mg PO BID 03/15/23 07/30/24 04/11/23 History duloxetine 60 mg capsule,delayed 60 mg PO PRN PRN LEG CRAMPS 04/11/23 07/30/24 04/10/23 History release finasteride 5 mg tablet 5 mg PO HS 04/11/23 07/30/24 04/10/23 History cholecalciferol (vitamin D3) 50 50 mcg PO DAILY 08/17/23 07/30/24 Unknown History mcg (2,000 unit) tablet mirabegron 25 mg tablet,extended 25 mg PO DAILY 08/17/23 07/30/24 Unknown History release 24 hr (Myrbetriq) multivit,Ca,min-iron 8 mg-folic 1 tablet PO DAILY 08/17/23 07/30/24 Unknown History acid 200 mcg-lycopene 600 mcg tablet (Centrum Men) omega-3 fatty acids 3,000 mg PO BID 08/17/23 07/30/24 Unknown History rosuvastatin 5 mg tablet 5 mg PO DAILY 08/17/23 07/30/24 Unknown History torsemide 10 mg tablet 10 mg PO DAILY 08/17/23 07/30/24 Unknown History verapamil 120 mg 24 hr 120 mg PO DAILY 08/17/23 07/30/24 Unknown History capsule,extended release Allergies Allergy/AdvReac Type Severity Reaction Status Date / Time No Known Allergies Allergy Unknown Verified 08/03/24 18:28 [facility] Past Medical History Medical History Colon polyp Family History Family History Sibling Family history of diabetes mellitus in first degree relative Family history of hearing loss Diabetes mellitus Family history of lymphoma Family history of lung disease Malignant neoplasm of prostate Mother Family history of cardiovascular disease Father Family history of pancreatic cancer Social History Social History Social History: Caffeine-daily Years smoked: 25 Smoking status: Former smoker Tobacco type: cigars Second hand tobacco smoke exposure: No Smoking end date: 07/23/09 Additional smoking assessment comments: SMOKED 6 CIGARS DAILY X 25 YRS Alcohol intake: never Drinks per week: 1 Alcohol use details: RARW Substance use: never Substance use type: does not use Lack of Transportation: No Lack of Food: Never True Current Housing: I Have Housing Concerned About Future Housing: No Difficulty Paying Gas/Electric Bills: No Difficulty Paying for Meds: No Currently Unemployed: No Education: High School Diploma/GED Difficulty w/ Childcare or Family Care: No Living arrangements: alone Spiritual care concerns: No Course Vital Signs Vital signs: Vital Signs Temperature 36.8 C 08/03/24 18:15 Pulse Rate 80 08/03/24 18:15 Respiratory Rate 18 08/03/24 18:15 Blood Pressure 179/80 H 08/03/24 18:15 Pulse Oximetry 98 08/03/24 18:15 Oxygen Delivery Room Air 08/03/24 18:15 Temperature 36.8 C 08/03/24 18:15 Pulse Rate 80 08/03/24 18:15 Respiratory Rate 18 08/03/24 18:15 Blood Pressure 179/80 H 08/03/24 18:15 Pulse Oximetry 98 08/03/24 18:15 Oxygen Delivery Room Air 08/03/24 18:15 Medical Decision Making MDM Narrative Medical decision making narrative: ?Patient placed in room: 2 ? History and physical was performed. x-ray right femur hip and pelvis showed no active disease per radiology Independent Historian: External Source Review: Differential Dx includes but not limited to: fracture dislocation muscle contusion strain Medications were Reviewed: home meds reviewed Medications given: Toradol 30 mg IM patient is able to ambulate slowly at discharge Independently Interpreted by me: X-ray right hip and pelvis and femur was n egative as independently interpreted by me. Shared decision Making: evaluation was discussed with the patient his significant other. All questions were asked and answered patient agreed with the plan. Social Situation Impacting Patients Care: Discussed with Dr. OCHOA DIAGNOSIS: ground level fall right thigh muscle strain DISPOSITION : discharge home CONDITION AT DISCHARGE: stable Vital Signs Vital Signs: Vital Signs Temperature 36.8 C 08/03/24 18:15 Pulse Rate 80 08/03/24 18:15 Respiratory Rate 18 08/03/24 18:15 Blood Pressure 179/80 H 08/03/24 18:15 Pulse Oximetry 98 08/03/24 18:15 Oxygen Delivery Room Air 08/03/24 18:15 Temperature 36.8 C 08/03/24 18:15 Pulse Rate 80 08/03/24 18:15 Respiratory Rate 18 08/03/24 18:15 Blood Pressure 179/80 H 08/03/24 18:15 Pulse Oximetry 98 08/03/24 18:15 Oxygen Delivery Room Air 08/03/24 18:15 Discharge Plan Discharge Clinical Impression: Fall from ground level Muscle strain of right lower extremity Qualifiers: Encounter type: initial encounter Qualified Code(s): S86.911A - Strain of unspecified muscle(s) and tendon(s) at lower leg level, right leg, initial encounter Patient Disposition: Home, Self-Care Condition: Stable Instructions: Muscle Strain (ED) Additional Instructions: take your [place] 10 4 times a day as needed for pain. Ice packs and or low heating pad for 20 minutes as discussed. Follow-up with your primary care provider this week. Return if you get worse or not or develops any new symptoms. Patient Language: Gabonese Prescriptions: No Action clindamycin HCl 300 mg capsule 300 mg PO Q6H Qty: 40 0RF metformin 1,000 mg tablet 1,000 mg PO BID pantoprazole 40 mg tablet,delayed release (DR/EC) 40 mg PO QAM tamsulosin 0.4 mg capsule 0.4 mg PO DAILY hydrocodone-acetaminophen 10-325 mg tablet 1 tablet PO Q8H PRN (Reason: Pain) losartan 100 mg tablet 100 mg PO DAILY insulin degludec [Tresiba FlexTouch U-100] 100 unit/mL (3 mL) insulin pen 30 unit subcut QHS pregabalin [Lyrica] 100 mg capsule 100 mg PO BID Patient Comments: TAKES PRN ofloxacin 0.3 % drops 4 drp otic (ear) TID Qty: 10 2RF Rx Instructions: put 4 drops in each ear t.i.d. with ear up towards the ceiling for 30 seconds afterwards torsemide 10 mg tablet 10 mg PO DAILY rosuvastatin 5 mg Tablet 5 mg PO DAILY Myrbetriq 25 mg Tablet Extended Release 24 Hr 25 mg PO DAILY verapamil 120 mg capsule,ext rel. pellets 24 hr 120 mg PO DAILY omega-3 fatty acids Capsule 3,000 mg PO BID cholecalciferol (vitamin D3) 50 mcg (2,000 unit) Tablet 50 mcg PO DAILY Centrum Men 8 mg iron- 200 mcg-600 mcg Tablet 1 tablet PO DAILY finasteride 5 mg tablet 5 mg PO HS duloxetine 60 mg capsule,delayed release(DR/EC) 60 mg PO PRN PRN (Reason: LEG CRAMPS) Follow-up/Referrals: Luis Briggs MD [Primary Care Provider] - Time of Disposition: 20:12
--- NOTE | 2024-08-03 19:00 | PC.NURSE ---
ASSUMED CARE. REPORT RECEIVED FROM ARSALAN TALBERT.
[2024-08-03] MEDS: KETOROLAC 30 MG/ML VIAL (*BKC) IM (19:19)
--- NOTE | 2024-08-03 19:23 | PC.NURSE ---
MEDICATED FOR PAIN PER MAR. PATIENT RESTING ON STRETCHER. ICE PACK TO RIGHT THIGH. LAUGHING AND MAKING JOKES. SIGNIFICANT OTHER AT THE BEDSIDE. DENIES ANY OTHER NEEDS AT THIS TIME
--- NOTE | 2024-08-03 20:03 | PC.NURSE ---
DR BAUTISTA NOTIFIED PATIENT THAT XRAYS WERE ALL NEGATIVE. PATIENT WAS STARTING TO GET DRESSED WITH HELP OF SIGNIFICANT OTHER.
--- NOTE | 2024-08-03 20:12 | PC.NURSE ---
PATIENT AMBULATED AROUND ROOM. LIMPING DUE TO PAIN TO RIGHT THIGH. STATES HE WILL BE ABLE TO TOLERATE IT AT HOME. HAS PAIN MEDICATION ALREADY PRESCRIBED TO HIM FOR AT HOME. SIGNIFICANT OTHER AT THE BEDSIDE
[2024-08-03 20:18] VITALS: BP 138/82; PULSE 79; RESP 18; O2SAT 98
== END 2024-08-03 20:18 | disposition home or self-care (01) ==
PROVIDERS: Emergency Provider Emergency Medicine; PCP Internal Medicine
DX: S86.911A Strain of unspecified muscle(s) and tendon(s) at lower leg level, right leg, initial encounter (principal); Z79.899 Other long term (current) drug therapy; Z87.891 Personal history of nicotine dependence; W18.30XA Fall on same level, unspecified, initial encounter; Y93.K1 Activity, walking an animal
CPT/HCPCS: 73502; 73552; 96372; 99284; J1885

== ENCOUNTER 2024-08-28 09:33 | Outpatient (CLI) | payer MEDICARE, SELFPAY ==
--- NOTE | ~2024-08-28 | MR_ITS ---
EXAMINATION: MR femur RT wo con DATE: 08/28/2024 10:16 INDICATION: One month of right thigh pain with swelling TECHNIQUE: Magnetic resonance imaging (MRI) of the right thigh was performed without intravenous cont rast. Sequences included axial, sagittal and coronal T1-weighted FSE and fluid sensitive FSE STIR. COMPARISON: Radiographs dated 08/03/2024 FINDINGS: There is an elongated intramuscular hematoma extending 11.3 similar craniocaudally length and measuri ng up to 1.9 x 1.4 cm maximal diameter surrounding the mid to distal intramuscular portion of the rig ht rectus femoris tendon. The distal portion of the tendon appears lax. Findings consistent with a li antoinette partial tear involving the mid to distal myotendinous junctions. Remaining muscles and tendons i n the right thigh including the visualized portions of the quadriceps tendon are normal. There is nor mal bone marrow signal throughout. Right hip joint appears unremarkable with no joint effusion. No ab normal masses or fluid collections. No pathologically enlarged right pelvic or inguinal lymphadenopat hy. IMPRESSION: 1. Partial tear/moderate grade strain involving the mid to distal myotendinous junction the right rec tus femoris tendon with small surrounding intramuscular hematoma. Reviewed, dictated and finalized at location A. NT PARTNER IMPRESSION: 1. Partial tear/moderate grade strain involving the mid to distal myotendinous junction the right rectus femoris tendon with small surrounding intramuscular h ematoma.
--- OUTSIDE RECORDS SUMMARY | 2024-08-28 09:43 | XMS_ITS | Referral Summary ---
Author Organization [facility] Address [address] [place] [address] Care Team Providers Care Control Center Operator Name Role Phone Luis Briggs MD Primary Care Provider [phone] Source Comments [facility] Affiliates and Associated Physician Practices is amultiple site organization consisting of ambulatory clinics and hospital sitesin [place] and [place]. This disclosure is being madepursuant to the Care Everywhere program and may not contain all information available regarding this patient. Last updated 18.[email or web address] Social History Tobacco Use Types Packs/Day Years Used Date Smoking Tobacco: Never Assessed Sex and Gender Information Value Date Recorded Sex Assigned at Not on file Gender Identity Not on file Sexual Orientation Not on file Plan of Treatment Not on file Care Teams Control Center Operator Relationship Specialty Start Date End Date Luis Briggs MD [address] [place] [address] PCP - General Internal Medicine 06/04/18
--- OUTSIDE RECORDS SUMMARY | 2024-08-28 09:43 | XMS_ITS | Encounter Summary ---
Author Organization [facility] Address Formerly [facility] [place] [address] Care Team Providers Care Circulator Name Role Phone Luis Briggs MD Primary Care Provider [phone] Encounter Details Date Type Department Care Team (Late st Contact Info) Description 07/19/2017 Abstract [facility] CONVERSION [address] [place] [address] , Generic ConversionMD Social History Tobacco Use Types Packs/Day Years Used Date Smoking Tobacco: Never Assessed Sex and Gender Information Value Date Recorded Sex Assigned at Not on file Legal Sex Male 1:26 AM CDT Gender Identity Not on file Sexual Orientation Not on file documented as of this encounter Plan of Treatment Not on file documented as of this encounter Visit Diagnoses Not on filedocumented in this encounter Care Teams Circulator Relationship Specialty Start Date End Date Luis Briggs MD [address] [place] [id number] PCP - General INTERNAL MEDICINE 11/06/18 documented as of this encounter
--- OUTSIDE RECORDS SUMMARY | 2024-08-28 09:43 | XMS_ITS | Encounter Summary ---
Author Organization [facility] Address Formerly [facility] [place] [address] Care Team Providers Care Enterprise Application Architect Name Role Phone Luis Briggs MD Primary Care Provider [phone] Encounter Details Date Type Department Care Team (Late st Contact Info) Description 06/22/2014 Abstract [facility] CONVERSION [address] [place] [address] , Generic MD Adolfo Social History Tobacco Use Types Packs/Day Years [...] on filedocumented in this encounter Care Teams Enterprise Application Architect Relationship Specialty Start Date End Date Luis Briggs MD [address] [place] [phone] PCP - General INTERNAL MEDICINE 11/06/18 documented as of this encounter
--- OUTSIDE RECORDS SUMMARY | 2024-08-28 09:43 | XMS_ITS | Clinical Summary ---
Author Organization [facility] Address [address] [place] [address] Care Team Providers Care Patient Accounts Specialist Name Role Phone Luis Briggs MD Primary Care Provider [phone] Source Comments [facility] [employer],non-owned Affiliates and Associated Physician Practices is amultiple site organization consisting of ambulatory clinics and hospital sitesin [place], [place], [place] and [place]. This disclosure is being madepursuant to the Care Everywhere program and may not contain all information available regarding this patient. Last updated 18.[facility] [employer] Social History Tobacco Use Types Packs/Day Years Used Date Smoking Tobacco: Never Assessed Sex and Gender Information Value Date Recorded Sex Assigned at Not on file Gender Identity Not on file Sexual Orientation Not on file Plan of Treatment Health Maintenance Due Date Last Done Comments COLOGUARD (AGES 45-75) - COL ON CA SCREENING 1955 COLON MONITORING 1955 COLONOSCOPY - COLON CA SCREENING 1955 CT COLONOGRAPHY - COLON CA SCREENING 1955 Colorectal Cancer Screening 1955 FIT - COLON CA SCREENING 1955 FLEX SIG - COLON CA SCREENING 1955 LIPID TESTING 1955 HEPATITIS C SCREENING 06/21/1973 DTAP/TDAP/TD VACCINES (1 - Tdap) 1974 PNEUMOCOCCAL VACCINE 50+ (1 of 1 - PCV) 2005 ZOSTER VACCINE (1 of 2) 2005 COVID-19 VACCINE ( - 2023-2 5 season) 2024 INFLUENZA VACCINE (#1) 2024 DEPRESSION SCREENING 07/23/2024 MEDICARE AWV CALENDAR YEAR 2024 Respiratory Syncytial Virus (RSV) Vaccine Pt: or over 60 yrs (1 - 1-dose 75+ series) 2030 HEPATITIS B VACCINE Aged Out No longe r eligible based on patient's age to complete this topic HIB VACCINE Aged Out No longer eligi ble based on patient's age to complete this topic HPV VACCINE Aged Out No longer eligi ble based on patient's age to complete this topic MENINGOCOCCAL (Group B) VACCINE Aged Out No longer eligible based on patient's age to complete this topic MENINGOCOCCAL VACCINE Aged Out No diana estefania eligible based on patient's age to complete this topic Care Teams Patient Accounts Specialist Relationship Specialty Start Date End Date Luis Briggs MD [address] [place], [place] [id number] PCP - General Internal Medicine 06/04/18
--- OUTSIDE RECORDS SUMMARY | 2024-08-28 09:43 | XMS_ITS | Clinical Summary ---
Author Organization [facility] Address [address] [place] [address] Care Team Providers Care Metal Fabricator Welder Name Role Phone Luis Briggs MD Primary Care Provider [phone] Social History Tobacco Use Types Packs/Day Years Used Date Smoking Tobacco: Never Assessed Sex and Gender Information Value Date Recorded Sex Assigned at Not on file Legal Sex Male 1:26 AM CDT Gender Identity Not on file Sexual Orientation Not on file Plan of Treatment Health Maintenance Due Date Last Done Comments Colorectal Cancer Screening Colonoscopy (10 Years) 1955 Hepatitis C 1973 DTaP, Tdap and Td Vaccines ( 1 - Tdap) 1974 Zoster Vaccines (1 of 2) 2005 Annual Medicare Wellness Visit 2020 Pneumococcal Vaccine: 65+ Years (2 of 2 - PPSV23 or PCV20) 2020 04/12/2015, 06/01/2011 COVID-19 Vaccine (3 - 2023-2 5 season) 2024 10/05/2020, 09/14/2020 Influenza Adult (#1) 2024 04/29/2019 RSV Immunization or 60+ Years (1 - 1-dose 75+ series) 2030 Meningococcal B Vaccine Aged Out No l onger eligible based on patient's age to complete this topic Meningococcal Vaccine Aged Out No diana estefania eligible based on patient's age to complete this topic RSV Immunizations Under 20 Months Aged Out No longer eligible b ased on patient's age to complete this topic Insurance [address] [place] [address] BLUE [employer]OSS BLUE [facility] AET [address] Care Teams Metal Fabricator Welder Relationship Specialty Start Date End Date Luis Briggs MD [address] [place] [phone] PCP - General INTERNAL MEDICINE 11/06/18
--- OUTSIDE RECORDS SUMMARY | 2024-08-28 09:43 | XMS_ITS | Patient Health Summary ---
Author Organization [facility] Address [address] [facility] [address] [place] [address] Care Team Providers Care Superintendent Cemetery Name Role Phone Luis Briggs MD Primary Care Provider [phone] Note from [facility],non-owned Affiliates and Associated Physician Practices is amultiple site organization consisting of ambulatory clinics and hospital sitesin [place], [place], [place] and [place]. This disclosure is being madepursuant to the Care Everywhere program and may not contain all information available regarding this patient. Last updated 18.[facility] [employer] Social History Tobacco Use Types Packs/Day Years Used Date Smoking Tobacco: Never Assessed Sex and Gender Information Value Date Recorded Sex Assigned at Not on file Gender Identity Not on file Sexual Orientation Not on file Care Teams Superintendent Cemetery Relationship Specialty Start Date End Date Luis Briggs MD [address] [place] [address] PCP - General Internal Medicine 06/04/18
--- OUTSIDE RECORDS SUMMARY | 2024-08-28 09:43 | XMS_ITS | Clinical Summary ---
Author Organization [facility] Address [address] [place] [address] Phone Care Team Providers Care Merchandising Team Lead Name Role Phone Unavailable Primary Care Provider Unavailabl e Allergies No known active allergies Medications HYDROcodone-acet aminophen (NORCO) 7.5-325 mg Tablet Take 1 Tablet by mouth every 4 hours as needed for Pain, Moderate. Active DULoxetine (CYMBALTA) 30 mg Capsule, Delayed Release(E.C.) Take 30 mg by mouth 2 times daily. Active verapamil (CALAN) 120 mg tablet Take 120 mg by mouth 3 times daily. Active metFORMIN (GLUCOPHAGE) 1,000 mg tablet Take 1,000 mg by mouth 2 times daily with meals. Active pantoprazole (PROTONIX) 40 mg Tablet, Delayed Release (E.C.) Take 40 mg by mouth daily. Active losartan (COZAAR) 100 mg tablet Take 100 mg by mouth daily. Active glimepiride (AMARYL) 4 mg tablet Take 4 mg by mouth 2 times daily with meals. Active Social History Tobacco Use Types Packs/Day Years Used Date Smoking Tobacco: Former Cigarettes Q uit: 11/14/1990 Smokeless Tobacco: Never Alcohol Use Standard Drinks/Week Comments Never 0 (1 standard drink = 0.6 oz pur e alcohol) Sex and Gender Information Value Date Recorded Sex Assigned at Not on file Legal Sex Male 12:52 PM CDT Gender Identity Not on file Sexual Orientation Not on file Last Filed Vital Signs Vital Sign Reading Time Taken Comments Blood Pressure 136/87 11/18/2018 5:31 PM CDT Pulse 83 11/18/2018 5:31 PM CDT Temperature 36.8 C (98.3 F) 11/18/2018 5:31 PM CDT Respiratory Rate 16 11/18/2018 5:31 PM CDT Oxygen Saturation 97% 11/18/2018 5:31 PM CDT Inhaled Oxygen Concentration - - Weight 90.7 kg (200 lb) 11/18/2018 11:02 AM CDT Height 167.6 cm (5' 6 ) 11/18/2018 11:02 AM CDT Body Mass Index 32.28 11/18/2018 11:02 AM CDT Plan of Treatment Health Maintenance Due Date Last Done Comments DTAP/TDAP/TD VACCINES (1 - Tdap) 1974 COLORECTAL SCREENING 2000 Colorectal Cancer Screening 2000 FIT-DNA Q 3 years 2000 FIT/FOBT Q 1 year 2000 Flex Sig/CT Colonography Q 5 years 2000 PNEUMOCOCCAL VACCINE 65+ YEARS (1 of 1 - PCV) 06/26/20 05 ZOSTER VACCINE (1 of 2) 2005 INFLUENZA VACCINE (#1) 2024 RSV VACCINE (60+ or ) (1 - 1-dose 75+ series) 2030 Insurance [employer] BLUE ACCESS/TRUE BLUE PPO
== END 2024-08-28 09:34 | disposition home or self-care (01) ==
LOC: CHSIMG 09:34
PROVIDERS: PCP Internal Medicine; Visit Provider Internal Medicine
DX: M79.604 Pain in right leg (principal); M79.89 Other specified soft tissue disorders; S76.811A Strain of other specified muscles, fascia and tendons at thigh level, right thigh, initial encounter
CPT/HCPCS: 73718

== ENCOUNTER 2024-09-08 09:39 | Outpatient (RCR) | payer MEDICARE, SELFPAY ==
--- NOTE | 2024-09-08 11:26 | PTOPEVAL1 ---
Assessment and note entered by Gregor Leiva Evaluation Information Assessment Status Evaluation Diagnosis right leg pain Onset 08/03/24 Subjective Information Pt. reports that he was walking his dog on 08/03/24 and slipped landing on the right knee. He states that he underwent MRI and x-ray which revealed OA of the right hip and a slight tear in the thigh muscle. He states that he currently has pain in the right thigh and pain worsens with long periods of standing. He states that he has tenderness with pressure on the thigh. He reports that getting into and out of the vehicle is difficult due to pain. He reports that sitting for long periods will increase the pain as well as short distance walking. He reports pain is most relieved with sitting in the recliner. He reports that he cannot sleep well due to pain. He reports that his goal for therapy is to be able to return to walking several miles a day as he did prior to injury. Reported Pain Level Pain Score 3: Self Report Assessment PT Clinical Summary Pt. is a 69 year old male who enters the clinic with right thigh pain following a fall. While pt. has hx of hip OA on the right, symptoms appear most consistent with strain of the right quadriceps muscle. He currently presents with right l.e. weakness, impaired gait, impaired right knee ROM and pain. Continued skilled PT is indicated in order to improve these areas to allow the pt. to be able to complete all IADL's with improved comfort and efficiency. Plan of Care Interventions Electrical Stimulation,Gait Training,Hot Pack/Cold Pack,Manual Therapy,Neuro Re-education,Patient/ Caregiver Education,Therapeutic Activities, Therapeutic Exercise PT Services Indicated Yes Treatment Frequency and 2x/week x 10 visits Duration These treatments will address the objective and functional deficits as defined above. The patient will be advanced safely and appropriately in order for the patient to progress towards his/her prior level of function. Additional exercises will be introduced and as well as a comprehensive home exercise program upon discharge, if needed, to ensure carryover of functional gains achieved in the clinic. This treatment plan has been reviewed and agreement upon by the patient.
== END 2024-12-07 23:59 | disposition home or self-care (01) ==
LOC: CHSPT 09:39
PROVIDERS: PCP Internal Medicine; Visit Provider Internal Medicine
DX: M79.604 Pain in right leg (principal)
CPT/HCPCS: 97014; 97110; 97140; 97161; 97530; G0283

== ENCOUNTER 2024-09-30 09:27 | Outpatient (CLI) | payer MEDICARE, SELFPAY ==
--- OUTSIDE RECORDS SUMMARY | 2024-09-30 10:16 | XMS_ITS | Encounter Summary ---
Author Organization [facility] Address Formerly [facility] [place] [address] Care Team Providers Care Paper Folder Name Role Phone Luis Briggs MD Primary Care Provider [phone] Encounter Details Date Type Department Care Team (Late st Contact Info) Description 07/19/2017 Abstract [facility] CONVERSION [address] [place] [address] , Generic ConversionMD Social History Tobacco Use [...] on filedocumented in this encounter Care Teams Paper Folder Relationship Specialty Start Date End Date Luis Briggs MD [address] [place] [phone] PCP - General INTERNAL MEDICINE 11/06/18 documented as of this encounter
--- OUTSIDE RECORDS SUMMARY | 2024-09-30 10:16 | XMS_ITS | Clinical Summary ---
Author Organization [facility] Address [address] [place] [address] Phone Care Team Providers Care Supervisor Salvage Name Role Phone Unavailable Primary Care Provider [...] Colonography Q 5 years 2000 PNEUMOCOCCAL VACCINE 50+ YEARS (1 of 1 - PCV) 06/26/20 05 ZOSTER VACCINE (1 of 2) 2005 INFLUENZA VACCINE (#1) 2024 RSV VACCINE (60+ or ) (1 - 1-dose 75+ series) 2030 Insurance BCBS BLUE ACCESS/TRUE BLUE PPO
--- OUTSIDE RECORDS SUMMARY | 2024-09-30 10:16 | XMS_ITS | Patient Health Summary ---
Author Organization [facility] Address [address] [place] [address] Care Team Providers Care Coal Washer Name Role Phone Luis Briggs MD Primary Care Provider [phone] Note from [facility],non-owned Affiliates and Associated Physician Practices is amultiple site organization consisting of ambulatory clinics and hospital sitesin [place], [place], [place] and [place]. This disclosure is being madepursuant to the Care Everywhere program and may not contain all information available regarding this patient. Last updated 18.[facility] [place] Social History Tobacco Use Types Packs/Day Years Used Date Smoking Tobacco: Never Assessed Sex and Gender Information Value Date Recorded Sex Assigned at Not on file Gender Identity Not on file Sexual Orientation Not on file Care Teams Coal Washer Relationship Specialty Start Date End Date Luis Briggs MD [address] [place] [address] PCP - General Internal Medicine 06/04/18
--- OUTSIDE RECORDS SUMMARY | 2024-09-30 10:16 | XMS_ITS | Clinical Summary ---
Author Organization [facility] Address [address] [place] [address] Care Team Providers Care Field Attendant Name Role Phone Luis Briggs MD Primary Care Provider [phone] [facility] [employer],non-owned Affiliates and Associated Physician Practices is amultiple site organization consisting of ambulatory clinics and hospital sitesin [place], [place], [place] and [place]. This disclosure is being madepursuant to the Care Everywhere program and may not contain all information available regarding this patient. Last updated 18.[facility] [employer] Social History Tobacco Use Types Packs/Day Years [...] age to complete this topic Care Teams Field Attendant Relationship Specialty Start Date End Date Luis Briggs MD [address] [place], [place] [id number] PCP - General Internal Medicine 06/04/18
--- OUTSIDE RECORDS SUMMARY | 2024-09-30 10:16 | XMS_ITS | Encounter Summary ---
Author Organization [facility] Address [facility] [place] [address] Care Team Providers Care Steam Box Tender Name Role Phone Luis Briggs MD Primary Care Provider [phone] Encounter Details Date Type Department Care Team (Late st Contact Info) Description 06/22/2014 Abstract [facility] CONVERSION [address] [place] [address] , Generic MD Adolfo Social History Tobacco [...] on filedocumented in this encounter Care Teams Steam Box Tender Relationship Specialty Start Date End Date Luis Briggs MD [address] [place] [id number] PCP - General INTERNAL MEDICINE 11/06/18 documented as of this encounter
--- OUTSIDE RECORDS SUMMARY | 2024-09-30 10:16 | XMS_ITS | Clinical Summary ---
Author Organization [facility] Address [address] [place] [address] Care Team Providers Care Terrazzo Roller Name Role Phone Luis Briggs MD Primary Care Provider [phone] Social History Tobacco Use Types Packs/Day Years [...] complete this topic Insurance [address] [place] [address] BLUE CROSS BLUE [facility] AET [address] Care Teams Terrazzo Roller Relationship Specialty Start Date End Date Luis Briggs MD [address] [place] [id number] PCP - General INTERNAL MEDICINE 11/06/18
--- OUTSIDE RECORDS SUMMARY | 2024-09-30 10:16 | XMS_ITS | Referral Summary ---
Author Organization [facility] Address [address] [place] [address] Care Team Providers Care Break Out Man Name Role Phone Luis Briggs MD Primary Care Provider [phone] Source Comments [facility],non-[facility] Affiliates and Associated Physician Practices is amultiple site organization consisting of ambulatory clinics and hospital sitesin [place], [place], [place] and [place]. This disclosure is being madepursuant to the Care Everywhere program and may not contain all information available regarding this patient. Last updated 18.[facility] [employer] Social History Tobacco Use Types Packs/Day Years Used Date Smoking Tobacco: Never Assessed Sex and Gender Information Value Date Recorded Sex Assigned at Not on file Gender Identity Not on file Sexual Orientation Not on file Plan of Treatment Not on file Care Teams Break Out Man Relationship Specialty Start Date End Date Luis Briggs MD [address] [place] [address] PCP - General Internal Medicine 06/04/18
== END 2024-09-30 09:28 | disposition home or self-care (01) ==
LOC: ANHAUDIO 09:27
PROVIDERS: PCP Internal Medicine; Visit Provider Otolaryngology
DX: H70.13 Chronic mastoiditis, bilateral (principal); H90.6 Mixed conductive and sensorineural hearing loss, bilateral; H69.90 Unspecified Eustachian tube disorder, unspecified ear; H69.80 Other specified disorders of Eustachian tube, unspecified ear; H66.92 Otitis media, unspecified, left ear
CPT/HCPCS: 92557; 92567

== ENCOUNTER 2025-02-03 13:52 | Outpatient (CLI) | payer MEDICARE, SELFPAY ==
--- NOTE | ~2025-02-03 | XR_ITS ---
[id number] Ordering provider: Luis Briggs MD History: . CHEST WALL TRAUMA AND PAIN . Comparison: None. FINDINGS: BONES: Fracture in the left sixth rib is noted. LEFT LUNG: Atelectatic changes in the left lung base. Otherwise, No effusions or infiltrates. No pneu mothorax. SOFT TISSUES: Normal. IMPRESSION: Fracture in the left sixth rib. Atelectatic changes in the left lung base. Reviewed, dictated and finalized at location A.
--- OUTSIDE RECORDS SUMMARY | 2025-02-03 14:00 | XMS_ITS | Clinical Summary ---
Author Organization [facility] Address [address] [place] [address] Phone Care Team Providers Care Inventory Coordinator Name Role Phone Unavailable Primary Care Provider [...] 11:02 AM CDT Height 167.6 cm (5' 6) 11/18/2018 11:02 AM CDT Body Mass Index [...] (1 of 2) 2005 INFLUENZA VACCINE (#1) 2025 RSV VACCINE (60+ or ) (1 - 1-dose 75+ series) 2030 Insurance BCBS BLUE ACCESS/TRUE BLUE PPO
--- OUTSIDE RECORDS SUMMARY | 2025-02-03 14:00 | XMS_ITS | Clinical Summary ---
Author Organization [facility] Address [address] [place] [address] Care Team Providers Care Paper Coater Name Role Phone Luis Briggs MD Primary Care Provider [phone] Source Comments [facility] [employer],non-owned Affiliates and Associated Physician Practices is amultiple site organization consisting of ambulatory clinics and hospital sitesin [place], [place], [place] and [place]. This disclosure is being madepursuant to the Care Everywhere program and may not contain all information available regarding this patient. Last updated 18.[facility] [employer] Social History Tobacco Use Types Packs/Day Years Used Date Smoking Tobacco: Never Assessed Sex and Gender Information Value Date Recorded Sex Assigned at Not on file Legal Sex Male 12:39 PM CDT Gender Identity Not on file [...] VACCINE ( - 2023-2 5 season) 2024 DEPRESSION SCREENING 07/23/2024 MEDICARE AWV CALENDAR YEAR 2024 INFLUENZA VACCINE (#1) 2025 Respiratory Syncytial Virus (RSV) Vaccine Pt: or [...] to complete this topic MENINGOCOCCAL (Group B) VACC INE SHARED DECISION-MAKING Aged Out No longer eligibl e based on patient's age to complete this topic MENINGOCOCCAL GROUPS A/C/Y/W VACCINE Aged Out No longer eligible b ased on patient's age to complete this topic Insurance MANAGED MEDICARE ADV SELF PAY NO INSURANCE Member Subscriber Plan / Payer (Ef fective for All Dates) Name:Lee Ann Osborne Member ID:Not on file Relation to Subscriber:Not on file Name:LEE ANN OSBORNE Subscriber ID:Not on file Address: [address] [place] [address] Payer ID:Not on file Group ID:Not on file Type:Self Pay Address: [place], [place] [facility] MANAGED MEDICARE ADV Care Teams Paper Coater Relationship Specialty Start Date End Date Luis Briggs MD [address] [place] [address] PCP - General Internal Medicine 06/04/18
== END 2025-02-03 13:53 | disposition home or self-care (01) ==
LOC: CHSIMG 13:54
PROVIDERS: PCP Internal Medicine; Visit Provider Internal Medicine
DX: S29.9XXA Unspecified injury of thorax, initial encounter (principal); S22.32XA Fracture of one rib, left side, initial encounter for closed fracture; R91.8 Other nonspecific abnormal finding of lung field
CPT/HCPCS: 71101

== ENCOUNTER 2025-03-11 12:44 | Outpatient (CLI) | payer MEDICARE, SELFPAY ==
--- NOTE | ~2025-03-11 | MR_ITS ---
MRI of the lumbar spine Clinical History: Radiculopathy Technique: Axial T2-weighted images, and sagittal T1-weighted, T2-weighted, and and T2 fat-sat images were acquired. COMPARISON: 11/16/2021 Findings: Stable interbody fusion at L5-S1. Stable osseous alignment is similar to prior exam. No acute fracture or subluxation. Stable grade 1 anterolisthesis of L4 over L5. No suspicious bone marrow signal abnormality seen. At L1-L2, there is minimal disc bulge. There is moderate facet arthropathy. No central canal stenosis. There is mild bilateral neural foraminal narrowing. At L2-L3, there is degenerative disc narrowing, with diffuse disc bulge and mild facet arthropathy. No central canal stenosis. There is mild to moderate bilateral neural foraminal narrowing. At L3-L4, there is degenerative disc narrowing. There is diffuse disc bulge with severe facet arthropathy. No central canal stenosis. There is moderate to severe bilateral neural foraminal narrowing, left worse than right. At L4-L5, there is degenerative disc narrowing with diffuse disc bulge and severe facet arthropathy. No central canal stenosis. There is moderate to severe bilateral neural foraminal narrowing. At L5-S1, there is no disc bulge or herniation. No spinal canal stenosis. There is mild left neural foraminal narrowing. Paravertebral soft tissues are unremarkable. Impression: Moderate degenerative spondylosis overall, as detailed above. Stable postoperative change at L5-S1. Reviewed, dictated and finalized at [facility]. Impression: Moderate degenerative spondylosis overall, as detailed above. Stable postoperative change at L5-S1.
== END 2025-03-11 12:45 | disposition home or self-care (01) ==
LOC: MICIMG 12:44
PROVIDERS: PCP Internal Medicine; Visit Provider Nurse Practitioner Family
DX: M47.26 Other spondylosis with radiculopathy, lumbar region (principal); Z98.1 Arthrodesis status
CPT/HCPCS: 72148

== ENCOUNTER 2025-04-29 10:39 | Outpatient (CLI) | payer MEDICARE, SELFPAY ==
--- NOTE | ~2025-04-29 | XR_ITS ---
EXAMINATION: XR lumbar spine min 4V DATE: 04/29/2025 11:02 INDICATION: Low back pain. TECHNIQUE: 5 images of the lumbar spine were obtained. COMPARISON: [id number] FINDINGS: The study is significantly limited due to patient imaging characteristics. There is bowel gas and stool projecting over the pelvis which limits evaluation. Calcifications noted in the abdominal aorta. Mild levoconvex curvature of the lumbar spine. Bones appear osteopenic. Interbody fusion device at the L5-S1 level similar to the prior study. Grade 1 anterolisthesis of L4 on L5 which is grossly unchanged with flexion and extension. No compression fracture in the lumbar spine. Moderate joint space narrowing at the L2-L3, L3-L4 and L4-L5 levels. Extensive degenerative changes mid and lower lumbar facet joints similar to the prior study. IMPRESSION: 1. Limited study as above. 2. Interbody fusion device at the L5-S1 level similar to the prior study. Grade 1 anterolisthesis of L4 on L5 which is grossly unchanged with flexion and extension. 3. No compression fracture in the lumbar spine. 4. Moderate degenerative change in the lumbar spine. If symptoms persist or worsen, consider an MRI of the lumbar spine for further assessment. Reviewed, dictated and finalized at location Q. IMPRESSION: 1. Limited study as above. 2. Interbody fusion device at the L5-S1 level similar to the prior study. Grade 1 anterolisthesis of L4 on L5 which is grossly unchanged with flexion and exte nsion. 3. No compression fracture in the lumbar spine. 4. Moderate degenerative change in the lumbar spine. If symptoms persist or worsen, consider an MRI of the lumbar spine for further assessment.
== END 2025-04-29 10:40 | disposition home or self-care (01) ==
PROVIDERS: PCP Internal Medicine; Visit Provider Nurse Practitioner Family
DX: M43.16 Spondylolisthesis, lumbar region (principal); Z98.1 Arthrodesis status; M54.16 Radiculopathy, lumbar region
CPT/HCPCS: 72110

== ENCOUNTER 2025-07-18 08:11 | Emergency (ER) | payer MEDICARE, SELFPAY ==
[2025-07-18 08:28] VITALS: BP 132/83; PULSE 93; RESP 16; TEMP 36.2; O2SAT 99
--- NOTE | 2025-07-18 08:48 | ED.URI ---
HPI - URI/Sore Throat General Chief Complaint: Upper Respiratory Infection Stated Complaint: Flu like symptoms Time Seen by Provider: 07/18/25 08:48 Source: patient and RN notes reviewed Mode of arrival: ambulatory Limitations: no limitations History of Present Illness HPI Narrative: 70-year-old male presented for complaint of headache, body aches, sinus pressure/congestion, cough, fever/chills. onset 2 days. Denies sob, wheezing, n/v/d. Taking DayQuil and NyQuil. MD elicited complaint: cough Related Data Home Medications ?Medication ?Instructions ?Recorded ?Confirmed ?Last Taken ?Type metformin 1,000 mg tablet 1,000 mg PO BID 06/01/20 07/18/25 04/11/23 History hydrocodone 10 mg-acetaminophen 1 tablet PO Q8H PRN Pain 06/24/20 07/18/25 04/11/23 History 325 mg tablet tamsulosin 0.4 mg capsule 0.4 mg PO DAILY 06/24/20 07/18/25 04/10/23 History losartan 100 mg tablet 100 mg PO DAILY 07/04/21 07/18/25 04/11/23 History insulin degludec 100 unit/mL (3 30 unit subcut QHS 03/15/23 07/18/25 04/10/23 History mL) subcutaneous pen (Tresiba FlexTouch U-100 insulin) pregabalin 100 mg capsule (Lyrica) 100 mg PO BID 03/15/23 07/18/25 04/11/23 History finasteride 5 mg tablet 5 mg PO HS 04/11/23 07/18/25 04/10/23 History cholecalciferol (vitamin D3) 50 50 mcg PO DAILY 08/17/23 07/18/25 Unknown History mcg (2,000 unit) tablet multivit,Ca,min-iron 8 mg-folic 1 tablet PO DAILY 08/17/23 07/18/25 Unknown History acid 200 mcg-lycopene 600 mcg tablet (Centrum Men) rosuvastatin 5 mg tablet 5 mg PO DAILY 08/17/23 07/18/25 Unknown History verapamil 120 mg 24 hr 120 mg PO DAILY 08/17/23 07/18/25 Unknown History capsule,extended release flash glucose sensor (FreeStyle #1 ea 10/22/24 06/09/25 Unknown History Chaim 2 Sensor kit) duloxetine 20 mg capsule,delayed 20 mg PO BID 06/09/25 07/18/25 Unknown History release Allergies Allergy/AdvReac Type Severity Reaction Status Date / Time No Known Allergies Allergy Unknown Verified 07/18/25 08:39 Review of Systems Review of Systems: per HPI [facility] Past Medical History Medical History Fracture of rib of left side Colon polyp Surgical History Surgical History History of removal of skin mole Family History Family History Sibling Family history of diabetes mellitus in first degree relative Family history of hearing loss Diabetes mellitus Family history of lymphoma Family history of lung disease Malignant neoplasm of prostate Mother Family history of cardiovascular disease Father Family history of pancreatic cancer Social History Social History Social History: Caffeine-NONE Years smoked: 25 Smoking status: Former smoker Tobacco type: cigars Second hand tobacco smoke exposure: No Smoking end date: 07/23/02 Additional smoking assessment comments: SMOKED 6 CIGARS DAILY X 25 YRS Alcohol intake: never Drinks per week: 1 Alcohol use details: RARELY Substance use: never Substance use type: does not use Lack of Transportation: No Lack of Food: Never True Current Housing: I Have Housing Concerned About Future Housing: No Difficulty Paying Gas/Electric Bills: No Difficulty Paying for Meds: No Currently Unemployed: No Education: High School Diploma/GED Difficulty w/ Childcare or Family Care: No Living arrangements: alone Spiritual care concerns: No Exam Narrative: GENERAL: mildly Ill-appearing, nontoxic no acute distress. EYES: conjunctivae clear ENT: Mucous membranes moist. hearing aides in place bilaterally. Oropharynx erythematous without lesions or exudate, no drooling, no hoarseness, no trismus, uvula midline. No tripod positioning, muffled voice, soft palate or pharyngeal wall bulging NECK: Supple. No lymphadenopathy CHEST: Clear to auscultation, breath sounds equal. No wheezing, rhonchi, rales, or stridor. No respiratory distress, speaks in full sentences. HEART: Regular rate and rhythm. No murmur heard. SKIN: Warm, dry, no rash. NEURO: Alert and oriented x3. PSYCH: Normal mood and affect Course Course Level of Care: Express Care Visit Vital Signs Vital signs: Vital Signs Temperature 97.1 F L 07/18/25 08:28 Pulse Rate 93 07/18/25 08:28 Respiratory Rate 16 07/18/25 08:28 Blood Pressure 132/83 07/18/25 08:28 Pulse Oximetry 99 07/18/25 08:28 Temperature 97.1 F L 07/18/25 08:28 Pulse Rate 93 07/18/25 08:28 Respiratory Rate 16 07/18/25 08:28 Blood Pressure 132/83 07/18/25 08:28 Pulse Oximetry 99 07/18/25 08:28 MDM MDM Narrative Medical decision making narrative: positive flu. Discussed physical exam findings. Advised supportive measures and signs/symptoms to go to the ER. Pt is appropriate for outpt treatment and f/u. Differential Diagnosis Differential Diagnosis: influenza, covid, sinusitis, OM, strep pharyngitis, URI Discharge Plan Discharge Clinical Impression: Influenza Patient Disposition: Home Condition: Stable Instructions: Influenza (ED) Additional Instructions: Influenza positive You should avoid crowds until you are fever free for 24 hours without the use of fever reducing medications, or the symptoms are improved Rest. Drink plenty of fluids. Tylenol 1000mg every 8 hours as needed for pain/fever Recommend Flonase spray and Zyrtec (or Claritin/Kathryn) for sinus pressure/congestion over the counter Cough syrup may cause drowsiness; avoid driving or take it at night time. Follow up with your primary care provider as needed in 3 days Go to the ER for worsening symptoms or concerns Patient Language: Bhutanese Prescriptions: New oseltamivir [Tamiflu] 75 mg capsule 75 mg PO Q12H 5 Days Qty: 10 0RF No Action metformin 1,000 mg tablet 1,000 mg PO BID tamsulosin 0.4 mg capsule 0.4 mg PO DAILY hydrocodone-acetaminophen 10-325 mg tablet 1 tablet PO Q8H PRN (Reason: Pain) losartan 100 mg tablet 100 mg PO DAILY insulin degludec [Tresiba FlexTouch U-100] 100 unit/mL (3 mL) insulin pen 30 unit subcut QHS pregabalin [Lyrica] 100 mg capsule 100 mg PO BID Patient Comments: TAKES PRN (DME) FreeStyle Chaim 2 Sensor Kit See Rx Instructions .ROUTE .MEDSUPPLY Qty: 1 Rx Instructions: As directed clotrimazole 1 % solution 1 applic topical TID Qty: 30 3RF Rx Instructions: put 4 drops in left ear t.i.d. with ear up for 30 seconds afterwards towards the ceiling duloxetine 20 mg capsule,delayed release(DR/EC) 20 mg PO BID ofloxacin 0.3 % drops 4 drp otic (ear) TID Qty: 10 2RF Rx Instructions: put 4 drops in left ear with ear up towards healing for 20 seconds t.i.d. rosuvastatin 5 mg Tablet 5 mg PO DAILY verapamil 120 mg capsule,ext rel. pellets 24 hr 120 mg PO DAILY cholecalciferol (vitamin D3) 50 mcg (2,000 unit) Tablet 50 mcg PO DAILY Centrum Men 8 mg iron- 200 mcg-600 mcg Tablet 1 tablet PO DAILY finasteride 5 mg tablet 5 mg PO HS Follow-up/Referrals: Luis Briggs MD [Primary Care Provider, Internal Medicine] Stand Alone Forms: Work/School Release IP Time of Disposition: 08:55
[2025-07-18 08:56] LABS: EDCOVIDSCREEN Negative (Negative); EDINFLUASCREEN Positive (Negative); EDINFLUBSCREEN Negative (Negative); EDSTREPNEGPOS1 Negative (Negative)
== END 2025-07-18 09:00 | disposition home or self-care (01) ==
PROVIDERS: Emergency Provider Nurse Practitioner Family; PCP Internal Medicine
DX: J11.1 Influenza due to unidentified influenza virus with other respiratory manifestations (principal); Z87.891 Personal history of nicotine dependence; Z20.822 Contact with and (suspected) exposure to COVID-19
CPT/HCPCS: 87426; 87804; 87880; 99213; G0463